=== PATIENT | male | born 1960 | race Caucasian/White ===

== ENCOUNTER 2022-12-05 07:27 | Outpatient (REF) | payer OTHER, SELFPAY ==
[2022-12-05 11:18] LABS: MANUAL DIFF FLAG NO
[2022-12-05 11:26] LABS: Basophils Percent Auto 0.5 % (0-2); Eosinophils Absolute Auto 0.1 X10*3/uL (0.0-0.4); Eosinophils Percent Auto 1.5 % (0-4); Hematocrit 50.9 % (42.0-52.0); Hemoglobin 17.1 g/dl (14.0-18.0); Imm Gran Abs Auto 0.02 X10*3/uL (0.00-0.03); Imm Gran Pct Auto 0.3 % (0.0-0.4); Lymphocytes Absolute Auto 2.6 X10*3/uL (1.2-4.9); Lymphocytes Percent Auto 38.3 % (20-40); Mean Corpuscular HGB Conc 33.6 g/dl (31.0-36.0); Mean Corpuscular Hemoglobin 30.2 pg (27.0-33.0); Mean Corpuscular Volume 89.8 fL (80.0-98.0); Mean Platelet Volume 10.1 fL (9.4-12.4); Monocytes Absolute Auto 0.7 X10*3/uL (0.1-1.2); Monocytes Percent Auto 9.9 % (2-11); Neutrophils Absolute Auto 3.3 x10*3/uL (2.0-8.3); Neutrophils Percent Auto 49.5 % (45-73); Platelet Count 171 X10*3/uL (160-400); Red Blood Count 5.67 X10*6/uL (4.60-5.80); Red Cell Distribution Width 12.4 % (11.0-16.0); White Blood Count 6.7 X10*3/uL (4.8-10.8)
[2022-12-05 11:53] LABS: Alanine Aminotransferase 23 U/L (0-40); Albumin Level 4.4 g/dL (3.5-5.0); Alkaline Phosphatase 80 U/L (39-117); Anion Gap 13 (12-20); Aspartate Amino Transferase 19 U/L (5-37); Bilirubin Total 0.9 mg/dL (0.0-1.0); Blood Urea Nitrogen 19 mg/dL (9-16); Calcium 9.3 mg/dL (8.4-10.2); Carbon Dioxide 21 mmol/L (22-29); Chloride 107 mmol/L (96-108); Cholesterol 233 mg/dL; Estimated Glomerular Filt Rate > 60; Glucose Fasting 98 mg/dL (60-99); HDL Cholesterol 47 mg/dL; LDL Cholesterol Calculated 156 mg/dl; Potassium 4.4 mmol/L (3.3-5.1); Sodium 137 mmol/L (135-145); Total Protein 6.5 g/dL (6.5-8.0); Triglycerides 154 mg/dL
[2022-12-05 11:56] LABS: Appearance Urine Turbid; Color Urine Yellow; Glucose Urine UA Negative (Negative); Leukocyte Esterase Urine Negative (Negative); Nitrite Urine Negative (Negative); PH 5.5 (5.0-9.0); Specific Gravity - Urine 1.025 (1.005-1.025); Urine Blood Negative (Negative); Urine Ketones Negative (Negative); Urine Protein Negative (Neg-Trace)
[2022-12-05 12:01] LABS: Prostate Specific Antigen Scr 1.54 ng/mL (<0.05-4.0); TSH reflex Free T4 0.95 uIU/mL (0.32-4.0)
[2022-12-05 12:23] LABS: Creatinine Urine 183.75 mg/dL; Microalbum/Creatinine Ratio Ur 3.8 ug/mg cr
[2022-12-12 11:09] LABS: Testosterone, Free 46.8 pg/mL (35.0-155.0); Testosterone, Total 414 ng/dL (250-1100)
== END 2022-12-05 07:28 | disposition home or self-care (01) ==
LOC: HO.WFDLDS 07:27
PROVIDERS: Visit Provider Family Medicine
DX: Z00.00 Encounter for general adult medical examination without abnormal findings (principal); R79.89 Other specified abnormal findings of blood chemistry; I10 Essential (primary) hypertension; Z12.5 Encounter for screening for malignant neoplasm of prostate
CPT/HCPCS: 36415; 80053; 80061; 81003; 82043; 84153; 84402; 84403; 84443; 85025

== ENCOUNTER → 2023-01-01 15:00 | Outpatient (BNVA) | payer OTHER, SELFPAY | PROVIDERS: PCP Family Medicine; Visit Provider Urology | DX: N40.0 Benign prostatic hyperplasia without lower urinary tract symptoms (principal); R35.0 Frequency of micturition | CPT/HCPCS: 51798 ==

== ENCOUNTER 2023-02-19 09:47 | Outpatient (REF) | payer OTHER, SELFPAY ==
--- NOTE | ~2023-02-19 | US_ITS ---
EXAMINATION: US RETROPERITONEAL COMPLETE (RENAL) CLINICAL INFORMATION: Benign prostatic hyperplasia without lower urinary tract symptoms. COMPARISON: None available. TECHNIQUE: Real-time imaging of the kidneys and bladder. FINDINGS: RIGHT KIDNEY: 13.3 x 6.4 x 6.9 cm (SAG x AP x TRV). The kidney is normal in size, contour, and echogenicity. Renal cortical thickness is normal. No hydronephrosis. There are multiple anechoic cysts. 1. Lower pole cyst with septation measures 4.4 x 4.8 x 5.5 cm. 2. Midpole simple cyst measures 2.3 x 2.3 x 2.6 cm. 3. A simple upper pole cyst measures 2.5 x 2.0 x 2.5 cm. There are echogenic stones measuring 0.3 x 0.02 x 0.4 cm upper pole and 0.4 x 0.2 x 0.4 cm in midpole without caliectasis. LEFT KIDNEY: 11.5 x 6.2 x 6.3 cm (SAG x AP x TRV). The kidney is normal in size, contour, and echogenicity. Renal cortical thickness is normal. No hydronephrosis. There is an anechoic simple cyst in the upper pole measuring 3.6 x 3.7 x 3.7 cm. A nonobstructive echogenic stone is seen upper pole measuring 0.6 x 0.3 x 0.5 cm. There is mild pelvic fullness. BLADDER: Partially distended. Bilateral ureteral jets are demonstrated. Prevoid bladder volume is 105 mL. Postvoid bladder volume is 23.6 mL. Prostate volume is 66.3 mL. The prostate gland is heterogeneous with cysts. US/US retroperitoneal comp IMPRESSION: 1. Bilateral renal cysts. There is a complex cyst lower pole right kidney. 2. Bilateral nonobstructive echogenic renal calculi. There is no caliectasis or hydronephrosis. 3. Small postvoid residual bladder volume. 4. Moderate prostate enlargement.
== END 2023-02-19 09:48 | disposition home or self-care (01) ==
LOC: HO.US 09:47
PROVIDERS: PCP Family Medicine; Visit Provider Urology
DX: N40.0 Benign prostatic hyperplasia without lower urinary tract symptoms (principal); R35.0 Frequency of micturition
CPT/HCPCS: 76770

== ENCOUNTER → 2023-03-05 08:52 | Outpatient (BNVA) | payer OTHER, SELFPAY | PROVIDERS: PCP Family Medicine; Visit Provider Urology | DX: N28.1 Cyst of kidney, acquired (principal); R35.0 Frequency of micturition; N40.1 Benign prostatic hyperplasia with lower urinary tract symptoms | CPT/HCPCS: 51798 ==

== ENCOUNTER 2023-05-28 07:21 | Outpatient (REF) | payer OTHER, SELFPAY ==
--- NOTE | ~2023-05-28 | CT_ITS ---
EXAMINATION: CT ABDOMEN WITHOUT AND WITH CONTRAST CLINICAL INFORMATION: Renal mass protocol. Complex right kidney cyst. COMPARISON: Renal ultrasound 02/19/2023. TECHNIQUE: Contiguous axial thin section helical images of the abdomen were performed before and after the administration of oral contrast and 100 mL of Omnipaque 350 intravenous contrast. The data set was reformatted in the coronal and sagittal planes and reviewed on an independent workstation. This CT examination was performed using dose optimization techniques as appropriate, variously including the following: *Automated exposure control *Adjustment of mA and/or kV according to patient size (this includes techniques or standardized protocols for targeted exams where dose is matched to indication/reason for exam; i.e. extremities or head) *Use of iterative reconstruction technique DLP: 529 mGy-cm FINDINGS: LUNG BASES: Lung bases are clear. Large hiatal hernia. LIVER, GALLBLADDER, AND BILIARY TREE: The liver is homogeneous in attenuation. Small cysts in segment 2 and segment 8. No follow-up imaging is recommended. No biliary ductal dilatation. PANCREAS: No discrete pancreatic mass. No ductal dilatation. SPLEEN: Normal. ADRENAL GLANDS: No adrenal mass. KIDNEYS: No radiopaque nephrolithiasis. Symmetric nephrograms. Multiple cysts: 1. Right upper kidney, 2.4 cm, simple fluid density. Bosniak 1. No follow-up imaging recommended. 2. Right mid kidney, 2.3 cm, simple fluid density. Bosniak 1. No follow-up imaging recommended. 3. Right lower kidney, 1.1 cm, simple fluid density. Bosniak 1. No follow-up imaging recommended. 4. Right lower kidney 5.2 cm, simple fluid density. No visible septa. No mural nodularity or soft tissue component. Bosniak 2. No follow-up imaging recommended. 5. left upper kidney, 3.6 cm, simple fluid density. Bosniak 1. No follow-up imaging recommended. 6. Additional tiny cortical hypodensities in both kidneys are too small to characterize. Bosniak 2. No follow-up imaging recommended. BOWEL: Large hiatal hernia. Visible small and large bowel are normal in caliber. The appendix is normal. LYMPH NODES: No adenopathy. VASCULAR: Mild atherosclerosis. No aneurysm. BONES: No suspicious osseous lesions. Moderate degenerative changes in the spine. CT/CT abdomen wo/w IV con IMPRESSION: 5.2 cm Bosniak 2 cyst in the lower right kidney corresponds to the abnormality on recent ultrasound. No follow-up imaging is recommended. Large hiatal hernia. Fleischner guidelines were followed.
[2023-05-28 08:29] LABS: Blood Urea Nitrogen 19 mg/dL (9-16); Estimated Glomerular Filt Rate > 60
[2023-05-28] MEDS: iohexoL 350 MG/ML 100 ML INFUS..BTL 85 ML IV (09:07)
== END 2023-05-28 07:22 | disposition home or self-care (01) ==
LOC: HO.CT 07:21
PROVIDERS: PCP Family Medicine; Visit Provider Urology
DX: N28.1 Cyst of kidney, acquired (principal)
CPT/HCPCS: 36415; 74170; 82565; 84520; Q9967

== ENCOUNTER 2023-06-12 13:49 | Outpatient (AMB) | payer OTHER, SELFPAY ==
--- NOTE | 2023-06-12 13:58 | A.OFFVIS_ITS ---
Intake Intake Visit Reasons: 4m follow up Intake Note: Patient is present for Follow Up Urology Med: Alfuzosin, Antibiotic Allergy:None Blood Thinner: None [facility] P[facility]ML Allergies No Known Allergies Allergy (Verified 06/12/23 14:00) HPI HPI Comments History of Present Illness Details Venkatesh is a pleasant male. He is a patient of Dr. Aquino. He seen for the following urologic conditions - lower urinary tract symptoms - Peyronie's disease Peyronie's disease Progressive Normal testosterone 414 Mild deviation with thickening Discussed options including plication versus trial of antioxidant medications Would like to trial antioxidant Lower urinary tract symptoms AUA symptom score 20. PSA?12/05/2022?1.54. He was started on alfuzosin 10 mg. 03/05/23-- The patent is taking alfuzosin 10 mg with benefits. States having nocturia episodes 2 times at night, improved from 5 times. Evaluation today-- Blood: negative, leukocytes: negative. Bladder scan PVR: 62 mL. Renal US results reviewed?02/19/23?bilateral renal cyst. Complex in the lower pole of the right kidney 4.4 x 5.5 cm. Bilateral renal calculi noted. Estimated prostate volume noted was 66.3 mL. [facility] Social History Housing: House Patient Tobacco Use Status: Never used Tobacco e-Cigarette/Vaping Use: Never Used service: Yes Current occupational status: employed Cognitive needs: No Hearing needs: No Vision needs: No Review of Systems Const Denies chills and Denies fever(s) Card Reports no additional complaints and Denies syncope Resp Denies cough GI Denies abdominal pain and Denies heartburn Reports as per HPI and Denies change in libido Neuro Denies syncope Psych Denies change in libido Endo Denies change in libido Physical Exam Const General: cooperative, healthy appearing, comfortable and no acute distress Orientation/consciousness: patient oriented x3 HEENT Face and sinus: Yes normal facial exam Mouth: moist mucous membranes Neck Neck: Yes normal visual inspection, Yes full ROM and Yes trachea midline Chest Chest palpation & inspection: normal inspection of the chest Resp Effort & Inspection: normal respiratory effort, able to speak in complete sentences and no respiratory distress GI Inspection: Yes normal to inspection Back/Spine/Pelvis Cervical Spine: normal cervical lordosis Thoracic/Lumbar Spine: thoracic and lumbar spine normal to inspection Skin General skin exam: no rashes or lesions noted Neuro General: patient oriented x3, gait normal, tone normal and moves all extremities Extrem General: Yes normal to inspection and Yes capillary refill normal Office Procedures Post Void Residual Post Residual Void Post Void Residual (PVR): 0 02326-Yzrm Void Residual by ultrasound Assessment & Plan Assessment & Plan (1) Peyronie's disease: Code(s): N48.6 - Induration penis plastica Plan Trial medications with vacuum pump therapy Orders: Orders AMB Post Void Residual by ultrasound 06/12/23 N40.0 - Benign prostatic hyperplasia without lower urinary tract symptoms Medications: New vitamin E (dl, acetate) 450 mg PO DAILY 90 caps 1RF 90 days N48.6 - Induration penis plastica tadalafil Take daily 10 mg PO DAILY 90 tabs 1RF Peyrnies 90 days N48.6 - Induration penis plastica Patient Instructions: Imaging studies, laboratory and physical exam results were discussed and reviewed in detail. No major barriers to patient understanding were identified. An opportunity to ask questions regarding the treatment plan was provided. All questions were answered. The patient expressed understanding and agreement with the above treatment plan. The patient is aware they should contact our office by phone for worsening of their current condition or the appearance of new urologic symptoms. Compliance is encouraged with any medications and followup testing that is ordered. It is a privilege to participate in the urologic care of your patient. If you have any questions or concerns regarding treatment for the above conditions, or other urologic issues, please do not hesitate to contact me. The office telephone contact is [phone]. This note is constructed using voice recognition software. While every effort has been made to ensure accuracy business librarian errors may have been included. Yours sincerely, Dr Raoul Dixon MD, [facility] - Urology Providers of Expert, Compassionate Care for the Genitourinary System Coding Level of Care Code Est Pt Level 4 (18223) Diagnoses Peyronie's disease N48.6 CPT Codes Post Residual Void - PVR CPT Code: 59950-Yaop Void Residual by ultrasound ([id number])
== END 2023-06-12 15:34 | disposition home or self-care (01) ==
PROVIDERS: PCP Family Medicine; Visit Provider Urology
DX: N48.6 Induration penis plastica (principal)
CPT/HCPCS: 99214

== ENCOUNTER → 2023-06-12 13:49 | Outpatient (BNVA) | payer OTHER, SELFPAY | PROVIDERS: Visit Provider Urology | DX: N40.0 Benign prostatic hyperplasia without lower urinary tract symptoms (principal); N48.6 Induration penis plastica; Z79.899 Other long term (current) drug therapy | CPT/HCPCS: 51798 ==

== ENCOUNTER 2023-07-25 11:33 | Outpatient (AMB) | payer OTHER, SELFPAY ==
[2023-07-25 11:52] VITALS: BP 122/72; PULSE 57; O2SAT 98; BMI 25.6
--- NOTE | 2023-07-25 11:52 | MHC.PC.OV ---
Vital Signs 07/25/23 11:52 Height 6 ft 4 in Weight 210 lb BMI 25.6 BP 122/72 Blood Pressure Location Lt brachial Position Sitting Pulse 57 Pulse Source Pulse Oximeter Pulse Oximetry (%) 98 Oxygen Delivery Method Room Air Intake Visit Reasons: Discuss Anesthesiology Resident referral Intake Note: Patient is here to discuss gastro referral today. Allergies No Known Allergies Allergy (Verified 07/25/23 11:54) Tobacco use date assessed: 07/25/23 HPI Discuss Anesthesiology Resident referral HPI Details Pt presents to discuss GI referral. Pt reports difficulty swallowing. Pt also reports GERD. PFSH Social History Housing: House Patient Tobacco Use Status: Never used Tobacco e-Cigarette/Vaping Use: Never Used service: Yes Current occupational status: employed Current occupation: [employer] Cognitive needs: No Hearing needs: No Vision needs: No Questionnaire Thrive Questionnaire Date Thrive assessed: 12/04/22 CARIE-7 AMB Questionnaire CARIE-7 Date CARIE - 7 assessed: 12/04/22 Source: Developed by Drs. Malachi Macdonald, Elena Vang, Dav Huston and colleagues, with an educational samuel from [employer]. Review of Systems Const Denies chills, Denies fatigue, Denies fever(s), Denies headache(s) and Denies weakness ENT Denies dizziness and Denies headache(s) Card Denies dyspnea Resp Denies cough, Denies dyspnea, Denies wheezing and Denies other (shortness of breath) Musc Denies numbness and Denies tingling Neuro Denies dizziness, Denies headache(s), Denies numbness, Denies tingling and Denies weakness Psych Denies anxiety and Denies depression Endo Denies fatigue Aller/Immun Denies wheezing Physical exam (Primary Care) Vital Signs: Last Vital Signs Pulse 57 07/25/23 11:52 BP 122/72 07/25/23 11:52 Pulse Ox 98 07/25/23 11:52 Oxygen Delivery Method Room Air 07/25/23 11:52 BMI result Body Mass Index 25.6 Tobacco/Smoking Status: Tobacco use Status Tobacco use date assessed 07/25/23 07/25/23 11:55 Patient Tobacco Use Status Never used Tobacco 07/25/23 11:55 e-Cigarette/Vaping Use Never Used 07/25/23 11:55 Thrive Assessment: Date of Thrive Assessment Date Thrive assessed 12/04/22 07/25/23 11:55 Const General: well developed; No acute distress Nutritional Appearance: well nourished Orientation/consciousness: patient oriented x3 HENMT Head: Yes normocephalic and Yes atraumatic Eyes General: appearance normal, both eyes and all related structures Pupils: Equal, round and reactive pupils present EOM: EOMs intact bilaterally Resp Effort & Inspection: normal respiratory effort Neuro General: patient oriented x3 and gait normal Cranial nerves: Yes Equal, round and reactive pupils present Psych Affect: normal affect Assessment and Plan Assessment & Plan (1) Difficulty swallowing: Code(s): R13.10 - Dysphagia, unspecified Plan: Difficulty?swallowing?which?seems?related?to?GERD Start?omeprazole Will?check?modified?barium?swallow Will?also?refer?to?Gastroenterology (2) GERD (gastroesophageal reflux disease): Code(s): K21.9 - Gastro-esophageal reflux disease without esophagitis Plan: As?above, start?omeprazole Refer?to?GI Orders: Orders Complete Blood Count Auto Diff Today Z00.00 - Encounter for general adult medical examination without abnormal findings Lipid Panel Today Z00.00 - Encounter for general adult medical examination without abnormal findings FL barium swallow modified Today R13.10 - Dysphagia, unspecified Comprehensive Alexander. Panel Fast Today Z00.00 - Encounter for general adult medical examination without abnormal findings Microalbumin, Random (w Creat) Today I10 - Essential (primary) hypertension TSH reflex Free T4 Today Z00.00 - Encounter for general adult medical examination without abnormal findings UA and rflx microscopic Today Z00.00 - Encounter for general adult medical examination without abnormal findings Referrals Gastroenterology Referral K21.9 - Gastro-esophageal reflux disease without esophagitis, R13.10 - Dysphagia, unspecified Medications: New omeprazole 40 mg PO DAILY 30 caps 2RF 30 days Coding Level of Care Code Est Pt Level 3 (53059) Diagnoses Difficulty swallowing R13.10 GERD (gastroesophageal reflux disease) K21.9
== END 2023-07-25 12:31 | disposition home or self-care (01) ==
PROVIDERS: PCP Family Medicine; Visit Provider Family Medicine
DX: R13.10 Dysphagia, unspecified (principal); K21.9 Gastro-esophageal reflux disease without esophagitis
CPT/HCPCS: 99213

== ENCOUNTER 2023-08-17 13:38 | Outpatient (AMB) | payer OTHER, SELFPAY ==
--- NOTE | 2023-08-17 13:39 | MHC.OFFVIS ---
Intake Vital Signs 08/17/23 13:52 Height 6 ft 4 in Weight 235 lb 14.314 oz BMI 28.7 BP 149/100 H Blood Pressure Location Lt brachial Position Sitting Pulse 86 Intake Visit Reasons: Dysphagia Intake Note: Venkatesh presents in the office as a new patient for dysphagia. CC: HE is having issue swallowing and he has had an EGD w/ DIL in the past. IT was 12 years ago. Omeprazole has helped a little but he still has issues swallowing. He feels like he has a sudden intake of air that goes into his stomach. Allergies No Known Allergies Allergy (Verified 08/17/23 13:54) HPI HPI Comments History of Present Illness Details This is a 62y.o M with PMH of pAFib, BPH, who is here for difficulty swallowing. Has been having difficulty swallowing for almost 4-5 months primarily to solids catherine dry foods. 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 No odynophagia. But does have regurgitation catherine when supine. No unintentional weight loss. Last colo was 3 years ago in [place] - was given 7 year interval. Of note - pt reports being started on Eliquis recently in preparation for AFib ablation which is currently [facility] for September. 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 Cognitive needs: No Hearing needs: No Vision needs: No Review of Systems Const All systems reviewed & are unremarkable except as noted in HPI and below Physical Exam Vital Signs: Last Vital Signs Pulse 86 08/17/23 13:52 BP 149/100 H 08/17/23 13:52 BMI result Body Mass Index 28.7 Gen appear: NAD HEENT: nonicteric, no cervical lymphadenopathy Chest: CTA CVS: Regular S1/S2 Abd: soft, nontender, nondistended, bowel sounds + Ext: no peripheral edema Neuro: A/Ox3, noted to move all extremities spontaneously Psych: interacting appropriately Assessment & Plan Assessment & Plan (1) Difficulty swallowing: Code(s): R13.10 - Dysphagia, unspecified (2) Paroxysmal atrial fibrillation: Code(s): I48.0 - Paroxysmal atrial fibrillation Plan Ddx include Schatzki's ring recurrence, web/stricture, dysmotility, esophagitis. Plan: - EGD +/- dil. Pt reminded that this will need to be done off eliquis x 2 days and therefore will need to contact his Automatic Nailing Machine Operator for timing of Afib ablation as will likely not be able to interrupt the anticoagulation POST ablation x 2-3 months. - In the meantime can cont PPI (although reports did not help much). Cut up food in small pieces and chew thoroughly. Follow up after egd Coding Level of Care Code New Pt Level 4 (01155) Diagnoses Difficulty swallowing R13.10 Paroxysmal atrial fibrillation I48.0
[2023-08-17 13:52] VITALS: BP 149/100; PULSE 86; BMI 28.7
== END 2023-08-17 15:01 | disposition home or self-care (01) ==
PROVIDERS: PCP Family Medicine; Visit Provider Internal Medicine
DX: R13.10 Dysphagia, unspecified (principal); I48.0 Paroxysmal atrial fibrillation
CPT/HCPCS: 99204

== ENCOUNTER → 2023-08-17 13:38 | Outpatient (BNVA) | payer OTHER, SELFPAY | PROVIDERS: PCP Family Medicine; Visit Provider Internal Medicine ==

== ENCOUNTER 2023-09-10 08:42 | Outpatient (REF) | payer OTHER, SELFPAY ==
[2023-09-10 11:21] LABS: MANUAL DIFF FLAG NO
[2023-09-10 11:40] LABS: Basophils Percent Auto 0.4 % (0-2); Eosinophils Absolute Auto 0.1 X10*3/uL (0.0-0.4); Eosinophils Percent Auto 1.2 % (0-4); Hematocrit 48.1 % (42.0-52.0); Hemoglobin 15.8 g/dl (14.0-18.0); Imm Gran Abs Auto 0.04 X10*3/uL (0.00-0.03); Imm Gran Pct Auto 0.4 % (0.0-0.4); Lymphocytes Absolute Auto 1.8 X10*3/uL (1.2-4.9); Mean Corpuscular HGB Conc 32.8 g/dl (31.0-36.0); Mean Corpuscular Hemoglobin 30.1 pg (27.0-33.0); Mean Corpuscular Volume 91.6 fL (80.0-98.0); Mean Platelet Volume 10.1 fL (9.4-12.4); Monocytes Percent Auto 9.5 % (2-11); Neutrophils Absolute Auto 7.6 x10*3/uL (2.0-8.3); Neutrophils Percent Auto 71.5 % (45-73); Platelet Count 158 X10*3/uL (160-400); Red Blood Count 5.25 X10*6/uL (4.60-5.80); Red Cell Distribution Width 12.4 % (11.0-16.0); White Blood Count 10.7 X10*3/uL (4.8-10.8)
[2023-09-10 11:41] LABS: INTERNATIONAL NORM RATIO 1.1 (0.9-1.1); Prothrombin Time 13.3 SEC (11.1-13.3)
[2023-09-10 11:46] LABS: Anion Gap 11 (12-20); Blood Urea Nitrogen 16 mg/dL (9-16); Calcium 9.3 mg/dL (8.4-10.2); Carbon Dioxide 23 mmol/L (22-29); Chloride 110 mmol/L (96-108); Estimated Glomerular Filt Rate > 60; Glucose Random 108 mg/dL (60-115); Potassium 3.8 mmol/L (3.3-5.1); Sodium 140 mmol/L (135-145)
[2023-09-10 11:48] LABS: Appearance Urine Clear; Color Urine Dark Yellow; Glucose Urine UA Negative (Negative); Leukocyte Esterase Urine Negative (Negative); Nitrite Urine Negative (Negative); PH 5.5 (5.0-9.0); Specific Gravity - Urine 1.025 (1.005-1.025); Urine Blood Negative (Negative); Urine Ketones Negative (Negative); Urine Protein Negative (Neg-Trace)
[2023-09-10 12:01] LABS: Alanine Aminotransferase 19 U/L (0-40); Albumin Level 4.1 g/dL (3.5-5.0); Alkaline Phosphatase 85 U/L (39-117); Anion Gap 10 (12-20); Aspartate Amino Transferase 18 U/L (5-37); Bilirubin Total 0.7 mg/dL (0.0-1.0); Blood Urea Nitrogen 15 mg/dL (9-16); Calcium 9.1 mg/dL (8.4-10.2); Carbon Dioxide 23 mmol/L (22-29); Chloride 111 mmol/L (96-108); Cholesterol 152 mg/dL (<200); Estimated Glomerular Filt Rate > 60; Glucose Fasting 108 mg/dL (60-99); HDL Cholesterol 42 mg/dL (>40); LDL Cholesterol Calculated 89 mg/dL (<100); Potassium 3.8 mmol/L (3.3-5.1); Sodium 140 mmol/L (135-145); Total Protein 6.6 g/dL (6.5-8.0); Triglycerides 108 mg/dL (<150)
[2023-09-10 12:02] LABS: TSH reflex Free T4 0.98 uIU/mL (0.32-4.0)
[2023-09-10 12:17] LABS: Creatinine Urine 224.67 mg/dL
== END 2023-09-10 08:43 | disposition home or self-care (01) ==
LOC: HO.WFDLDS 08:42
PROVIDERS: Internal Medicine Cardiovascular Disease; Visit Provider Family Medicine
DX: Z00.00 Encounter for general adult medical examination without abnormal findings (principal); I10 Essential (primary) hypertension; I48.91 Unspecified atrial fibrillation
CPT/HCPCS: 36415; 80048; 80053; 80061; 81003; 82043; 82570; 84443; 85025; 85610

== ENCOUNTER 2023-09-12 14:02 | Outpatient (AMB) | payer OTHER, SELFPAY ==
--- NOTE | 2023-09-12 14:25 | A.OFFVIS_ITS ---
Intake Intake Visit Reasons: Peyronie's disease- follow up Intake Note: Patient is present for Follow Up Urology Med: Alfuzosin, Antibiotic Allergy:None Blood Thinner: Eliquis [facility] P[facility]ML Core Blower Required: No Accompanied by: Self / Same As Patient Allergies No Known Allergies Allergy (Verified 09/12/23 14:25) Medication List - Last Reconciled 09/12/23 by Raoul Dixon MD alfuzosin ER 10 mg PO DAILY 90 days apixaban (Eliquis) 5 mg PO BID flecainide 150 mg PO BID omeprazole 40 mg PO DAILY 30 days pentoxifylline ER 400 mg PO BID 90 days tadalafil 10 mg PO DAILY 90 days vitamin E (dl, acetate) 450 mg PO DAILY 90 days HPI HPI Comments History of Present Illness Details Venkatesh is a pleasant male. He is a patient of Dr. Aquino. He seen for the following urologic conditions - lower urinary tract symptoms - Peyronie's disease Peyronie's follow-up Has been on conservative therapy Good response Curvature resolving Able to achieve effective erection and penetration without discomfort to either partner Six month follow-up tele Peyronie's disease Progressive Normal testosterone 414 Mild deviation with thickening Discussed options including plication versus trial of antioxidant medications Would like to trial antioxidant Lower urinary tract symptoms AUA symptom score 20. PSA?12/05/2022?1.54. He was started on alfuzosin 10 mg. 03/05/23-- The patent is taking alfuzosin 10 mg with benefits. States having nocturia episodes 2 times at night, improved from 5 times. Evaluation today-- Blood: negative, leukocytes: negative. Bladder scan PVR: 62 mL. Renal US results reviewed?02/19/23?bilateral renal cyst. Complex in the lower pole of the right kidney 4.4 x 5.5 cm. Bilateral renal calculi noted. Estimated prostate volume noted was 66.3 mL. 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 Cognitive needs: No Hearing needs: No Vision needs: No Review of Systems Const Denies chills and Denies fever(s) Card Reports no additional complaints and Denies syncope Resp Denies cough GI Denies abdominal pain and Denies heartburn Reports as per HPI and Denies change in libido Neuro Denies syncope Psych Denies change in libido Endo Denies change in libido Physical Exam Const General: cooperative, healthy appearing, comfortable and no acute distress Orientation/consciousness: patient oriented x3 HEENT Face and sinus: Yes normal facial exam Mouth: moist mucous membranes Neck Neck: Yes normal visual inspection, Yes full ROM and Yes trachea midline Chest Chest palpation & inspection: normal inspection of the chest Resp Effort & Inspection: normal respiratory effort, able to speak in complete sentences and no respiratory distress GI Inspection: Yes normal to inspection Back/Spine/Pelvis Cervical Spine: normal cervical lordosis Thoracic/Lumbar Spine: thoracic and lumbar spine normal to inspection Skin General skin exam: no rashes or lesions noted Neuro General: patient oriented x3, gait normal, tone normal and moves all extremities Extrem General: Yes normal to inspection and Yes capillary refill normal Office Procedures Post Void Residual Post Residual Void Post Void Residual (PVR): 0 00057-Crem Void Residual by ultrasound Assessment & Plan Assessment & Plan (1) Peyronie's disease: Code(s): N48.6 - Induration penis plastica (2) BPH loc w urin obs/LUTS: Code(s): N40.1 - Benign prostatic hyperplasia with lower urinary tract symptoms Plan Six month follow-up Orders: Orders AMB Post Void Residual by ultrasound Today N39.8 - Other specified disorders of urinary system Medications: New pentoxifylline ER administer with meals 400 mg PO BID 180 tabs 1RF 90 days N48.6 - Induration penis plastica Refilled tadalafil Take daily 10 mg PO DAILY 90 tabs 1RF Peyrnies 90 days N48.6 - Induration penis plastica Patient Instructions: Imaging studies, laboratory and physical exam results were discussed and reviewed in detail. No major barriers to patient understanding were identified. An opportunity to ask questions regarding the treatment plan was provided. All questions were answered. The patient expressed understanding and agreement with the above treatment plan. The patient is aware they should contact our office by phone for worsening of their current condition or the appearance of new urologic symptoms. Compliance is encouraged with any medications and followup testing that is ordered. It is a privilege to participate in the urologic care of your patient. If you have any questions or concerns regarding treatment for the above conditions, or other urologic issues, please do not hesitate to contact me. The office telephone contact is [phone]. This note is constructed using voice recognition software. While every effort has been made to ensure accuracy kick plate installer errors may have been included. Yours sincerely, Dr Raoul Dixon MD, [facility] - Urology Providers of Expert, Compassionate Care for the Genitourinary System Coding Level of Care Code Est Pt Level 3 (23201) Diagnoses Peyronie's disease N48.6 BPH loc w urin obs/LUTS N40.1 CPT Codes Post Residual Void - PVR CPT Code: 56563-Jnyy Void Residual by ultrasound ([id number])
== END 2023-09-12 14:44 | disposition home or self-care (01) ==
PROVIDERS: PCP Family Medicine; Visit Provider Urology
DX: N48.6 Induration penis plastica (principal); N40.1 Benign prostatic hyperplasia with lower urinary tract symptoms
CPT/HCPCS: 99213

== ENCOUNTER → 2023-09-12 14:02 | Outpatient (BNVA) | payer OTHER, SELFPAY | PROVIDERS: PCP Family Medicine; Visit Provider Urology | DX: N48.6 Induration penis plastica (principal); N40.1 Benign prostatic hyperplasia with lower urinary tract symptoms; N13.8 Other obstructive and reflux uropathy | CPT/HCPCS: 51798 ==

== ENCOUNTER 2023-11-02 11:51 | Outpatient (AMB) | payer OTHER, SELFPAY ==
[2023-11-02 11:58] VITALS: BP 128/76; PULSE 62; RESP 13; TEMP 36.3; O2SAT 97; BMI 29.0
--- NOTE | 2023-11-02 11:58 | A.OFFPC_ITS ---
Vital Signs 11/02/23 11:58 Height 6 ft 4 in Weight 238 lb BMI 29.0 BP 128/76 Blood Pressure Location Rt brachial Position Sitting Respiration 13 Pulse 62 Pulse Source Pulse Oximeter Temp 97.4 F Temp Source Temporal Artery Scan Pulse Oximetry (%) 97 Oxygen Delivery Method Room Air Intake Visit Reasons: CPE with f/u labs and health maint. Photo Mask Inspector Required: No Accompanied by: Self / Same As Patient Allergies No Known Allergies Allergy (Verified 11/02/23 12:04) Tobacco use date assessed: 11/02/23 Dental Screening Dental Screen Date: 11/02/23 Did you have a dental visit in the last 12 months?: Yes Did you have a dental problem in the last 6 months where you did not have access to dental care?: No Was dental information given to patient?: Patient has dentist HPI CPE with f/u labs and health maint. HPI Details 62 y/o male presents for a CPE with f/u labs and health maintenance. Labs were drawn 09/10/23. Reviewed labs with pt. Elevated fasting glucose of 108. Triglycerides 108. TC 152. LDL 89. HDL 42. 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 Malachi Macdonald, Elena Vang, Dav Huston and colleagues, with an educational samuel from [facility]. Review of Systems Const Denies chills, Denies fatigue, Denies fever(s), Denies headache(s) and Denies weakness Eyes Denies change in vision ENT Denies dizziness, Denies headache(s), Denies hearing loss, Denies nasal congestion, Denies sinus pain, Denies sinus pressure and Denies sore throat Card Denies chest pain, Denies lightheadedness, Denies dyspnea and Denies other (palpitations) Resp Denies cough, Denies dyspnea and Denies wheezing GI Denies abdominal pain, Denies melena, Denies hematochezia, Denies change in bowel habits, Denies dyspepsia and Denies nausea Denies hematuria and Denies dysuria Musc Denies abnormal gait, Denies myalgias, Denies arthralgias, Denies numbness and Denies tingling Skin/Breast Denies rash, Denies unusual bruising and Denies wounds Neuro Denies abnormal gait, Denies dizziness, Denies headache(s), Denies memory loss, Denies numbness, Denies Sensory deficit (Neuro), Denies tingling and Denies weakness Psych Denies anxiety, Denies depression and Denies memory loss Endo Denies cold intolerance, Denies fatigue, Denies heat intolerance, Denies polydipsia and Denies polyuria Meng/Lymph Denies easy bleeding and Denies easy bruising Aller/Immun Denies wheezing Physical exam (Primary Care) Vital Signs: Last Vital Signs Temp 97.4 F 11/02/23 11:58 Pulse 62 11/02/23 11:58 Resp 13 11/02/23 11:58 BP 128/76 11/02/23 11:58 Pulse Ox 97 11/02/23 11:58 Oxygen Delivery Method Room Air 11/02/23 11:58 BMI result Body Mass Index 29.0 Tobacco/Smoking Status: Tobacco use Status Tobacco use date assessed 11/02/23 11/02/23 12:09 Patient Tobacco Use Status Never used Tobacco 11/02/23 12:06 e-Cigarette/Vaping Use Never Used 11/02/23 12:06 Thrive Assessment: Date of Thrive Assessment Date Thrive assessed 12/04/22 11/02/23 12:06 Const General: no acute distress, well developed, alert and awake Nutritional Appearance: well nourished Orientation/consciousness: patient oriented x3 HENMT Head: Yes normocephalic and Yes atraumatic Ears: hearing grossly normal bilaterally and TM's normal bilaterally General nose exam: Normal external nose present and Normal nares present Mouth: Normal oral and palatal mucosa present and moist mucous membranes Teeth and gingiva: dentition normal Throat: Yes posterior oropharynx normal Eyes General: appearance normal, both eyes and all related structures Pupils: Equal, round and reactive pupils present and Pupil accommodation reflex normal EOM: EOMs intact bilaterally Neck Neck: Yes normal visual inspection, Yes no lymphadenopathy and Yes trachea midline Thyroid: Thyroid normal Carotids: no bruits Lymphatic: no lymphadenopathy noted Chest Chest palpation & inspection: normal inspection of the chest Resp Effort & Inspection: normal respiratory effort Auscultation: clear to auscultation bilaterally Cardio Rate: regular rate Rhythm: regular rhythm Heart sounds: S1 normal heart sound present, S2 normal heart sound present, no gallops, no murmurs and no rubs Bruits: no abdominal aortic bruits and no carotid bruits GI Palpation (GI): No Abdominal aortic bruit present, Soft to palpation, nontender, No hepatosplenomegaly present and No Rebound tenderness present Auscultation: normal bowel sounds General: Yes no CVA tenderness Back/Spine/Pelvis Back: no CVA tenderness Cervical Spine: cervical ROM normal and No Cervical spine tenderness Thoracic/Lumbar Spine: thoraco-lumbar ROM normal, No pain with thoraco-lumbar ROM, No thoracic spinal tenderness and No lumbar spinal tenderness Skin Lesions: no lesions Rashes: no rashes Trauma: no lacerations or abrasions Wounds: no wounds Nails: normal Neuro General: patient oriented x3 Cranial nerves: Yes Equal, round and reactive pupils present Cognition (Neuro): normal cognition Gait exam (Neuro): Normal gait present Motor exam (neuro): 5/5 motor strength present throughout Sensory Exam: No Sensory deficit (Neuro) Deep tendon reflexes (DTR's): Right patellar reflex intensity grade: 2+ and Left patellar reflex intensity grade: 2+ Extrem General: Yes normal to inspection and No edema Psych Appearance: grossly normal Affect: normal affect Attitude: cooperative Thought process: Normal thought process present Assessment and Plan Assessment & Plan (1) Adult general medical exam: Code(s): Z00.00 - Encounter for general adult medical examination without abnormal findings Plan: 62-year-old?male?presents?for?complete?physical?exam Encouraged?healthy?diet?with?active?lifestyle?and?plenty?of?exercise (2) Elevated fasting glucose: Code(s): R73.01 - Impaired fasting glucose Plan: Mildly?elevated?fasting?blood?sugar?but?his?prior?check?in?November?was?normal. He?notes?that?he?may?not?have?had?a?complete?fast Recheck?fasting?blood?sugar (3) Paroxysmal atrial fibrillation: Code(s): I48.0 - Paroxysmal atrial fibrillation (4) Screening for colon cancer: Code(s): Z12.11 - Encounter for screening for malignant neoplasm of colon Plan: He?is?followed?by?[facility]?gastroenterology. (5) Screening for prostate cancer: Code(s): Z12.5 - Encounter for screening for malignant neoplasm of prostate Plan: Strong?family?history?of?prostate?cancer. Last?PSA?in?November?2022?was?within?normal?limits. Will?repeat?this?and?follow Orders: Orders Basic Metabolic Panel Fasting Today R73.01 - Impaired fasting glucose Prostate Specific Antigen Scr Today Z12.5 - Encounter for screening for malignant neoplasm of prostate Coding Level of Care Code Est Pt Prev Care 40-64y(67921) Diagnoses Adult general medical exam Z00.00 Elevated fasting glucose R73.01 Paroxysmal atrial fibrillation I48.0 Screening for colon cancer Z12.11 Screening for prostate cancer Z12.5
== END 2023-11-02 12:48 | disposition home or self-care (01) ==
PROVIDERS: PCP Family Medicine; Visit Provider Family Medicine
DX: Z00.00 Encounter for general adult medical examination without abnormal findings (principal); R73.01 Impaired fasting glucose; I48.0 Paroxysmal atrial fibrillation; Z12.11 Encounter for screening for malignant neoplasm of colon; Z12.5 Encounter for screening for malignant neoplasm of prostate
CPT/HCPCS: 99396

== ENCOUNTER 2024-03-14 09:45 | Outpatient (AMB) | payer OTHER, SELFPAY ==
--- NOTE | 2024-03-14 09:47 | MHC.OFFVIS ---
Intake Visit Reasons: 6m follow up Intake Note: Patient is Present for Telephone Follow Up Urology Med: Alfuzosin, Tadalafil, Pentoxifylline Antibiotic Allergy: None Blood Thinner: Eliquis Last Office PVR: 0ML Allergies No Known Allergies Allergy (Verified 03/14/24 09:47) Medication List - Last Reconciled 03/14/24 by Raoul Dixon MD alfuzosin ER 10 mg PO DAILY 90 days apixaban (Eliquis) 5 mg PO BID flecainide 75 mg PO BID omeprazole 40 mg PO DAILY 90 days pentoxifylline ER 400 mg PO BID 90 days tadalafil 10 mg PO DAILY 90 days vitamin E (dl, acetate) 450 mg PO DAILY 90 days HPI Comments Details: Venkatesh is a pleasant male. He is a patient of Dr. Aquino. He seen for the following urologic conditions - lower urinary tract symptoms - Peyronie's disease Telemedicine Evaluation 15 min Consultation [email or web address] René Video attempted Has moved to [place] Peyronie's follow-up Has been on conservative therapy Good response to daily tadalafil Also using alfuzosin for combination prostate Would like to continue Prescription provided Peyronie's disease Progressive Normal testosterone 414 Mild deviation with thickening Lower urinary tract symptoms AUA symptom score 20. PSA?12/05/2022?1.54. He was started on alfuzosin 10 mg. 03/05/23-- The patent is taking alfuzosin 10 mg with benefits. States having nocturia episodes 2 times at night, improved from 5 times. Evaluation today-- Blood: negative, leukocytes: negative. Bladder scan PVR: 62 mL. Renal US results reviewed?02/19/23?bilateral renal cyst. Complex in the lower pole of the right kidney 4.4 x 5.5 cm. Bilateral renal calculi noted. Estimated prostate volume noted was 66.3 mL. 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 Cognitive needs: No Hearing needs: No Vision needs: Yes Review of Systems Const All systems reviewed & are unremarkable except as noted in HPI and below Reports no additional complaints Resp Reports no additional complaints GI Reports no additional complaints Reports as per HPI Musc Reports no additional complaints Physical Exam Telemedicine evaluation Appropriate responses Regular breathing rate and rhythm HEENT Head: Yes normal to inspection Ears: hearing grossly normal bilaterally Eyes General: appearance normal, both eyes and all related structures Neck Neck: Yes normal visual inspection Chest Chest palpation & inspection: normal inspection of the chest Resp Effort & Inspection: normal respiratory effort and able to speak in complete sentences Telehealth Telehealth Telehealth Platform: [email or web address] Location of provider rendering services: practice address Location of patient: address on file Patient Identification confirmed using: Name, : Yes Telehealth method: video Patient verbally consented to treatment: Yes Patient verbally consented to billing insurance company: Yes Patient informed of any privacy concerns related to visit: Yes Minutes spent on Phone/Video with Pt.: 15 Assessment & Plan Assessment & Plan (1) BPH loc w urin obs/LUTS: Code(s): N40.1 - Benign prostatic hyperplasia with lower urinary tract symptoms Category: Medical (2) Peyronie's disease: Code(s): N48.6 - Induration penis plastica Category: Medical Plan 12 month follow-up tele Medications: Refilled tadalafil Take daily 10 mg PO DAILY 90 days 90 tabs 1RF Peyrnies N48.6 - Induration penis plastica Patient Instructions: Imaging studies, laboratory and physical exam results were discussed and reviewed in detail. No major barriers to patient understanding were identified. An opportunity to ask questions regarding the treatment plan was provided. All questions were answered. The patient expressed understanding and agreement with the above treatment plan. The patient is aware they should contact our office by phone for worsening of their current condition or the appearance of new urologic symptoms. Compliance is encouraged with any medications and followup testing that is ordered. It is a privilege to participate in the urologic care of your patient. If you have any questions or concerns regarding treatment for the above conditions, or other urologic issues, please do not hesitate to contact me. The office telephone contact is [phone]. This note is constructed using voice recognition software. While every effort has been made to ensure accuracy electronic court recorder errors may have been included. Yours sincerely, Dr Raoul Dixon MD, [facility] - Urology Providers of Expert, Compassionate Care for the Genitourinary System Coding Level of Care Code Tele Est Pt Level 4 (09134) Diagnoses BPH loc w urin obs/LUTS N40.1 Peyronie's disease N48.6
== END 2024-03-14 10:56 | disposition home or self-care (01) ==
LOC: HO.HUSH 09:45
PROVIDERS: PCP Family Medicine; Visit Provider Urology
DX: N40.1 Benign prostatic hyperplasia with lower urinary tract symptoms (principal); N48.6 Induration penis plastica
CPT/HCPCS: 99213

== ENCOUNTER → 2024-03-14 09:45 | Outpatient (BNVA) | payer OTHER, SELFPAY | PROVIDERS: PCP Family Medicine; Visit Provider Urology ==

== ENCOUNTER 2025-03-13 09:12 | Outpatient (AMB) | payer OTHER, SELFPAY ==
--- NOTE | 2025-03-13 09:12 | A.OFFVIS_ITS ---
Intake Visit Reasons: 1y follow up Intake Note: Patient is Present for 1Y Follow Up Urology Med: Alfuzosin, Tadalafil, Pentoxifylline,SILDENAFIL Antibiotic Allergy: None Blood Thinner: Eliquis Helicopter Officer Required: No Allergies No Known Allergies Allergy (Verified 03/13/25 09:13) HPI Comments Details: Venkatesh is a pleasant male. He is a patient of Dr. Aquino. He seen for the following urologic conditions - lower urinary tract symptoms - Peyronie's disease Telemedicine Evaluation 15 min Consultation [facility] René Video attempted Has moved to [place] Continue good response to alfuzosin for bladder management Peyronie's has responded well to combination daily tadalafil and pentoxifylline Would like to continue and learn about penile pump Would like to continue Prescription provided Peyronie's disease Progressive Normal testosterone 414 Mild deviation with thickening Lower urinary tract symptoms AUA symptom score 20. PSA?12/05/2022?1.54 He was started on alfuzosin 10 mg. 03/05/23-- The patent is taking alfuzosin 10 mg with benefits. States having nocturia episodes 2 times at night, improved from 5 times. 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 Cognitive needs: No Hearing needs: No Vision needs: Yes Review of Systems Const All systems reviewed & are unremarkable except as noted in HPI and below Reports no additional complaints Resp Reports no additional complaints GI Reports no additional complaints Reports as per HPI Musc Reports no additional complaints Physical Exam Telemedicine evaluation Appropriate responses Regular breathing rate and rhythm HEENT Head: Yes normal to inspection Ears: hearing grossly normal bilaterally Eyes General: appearance normal, both eyes and all related structures Neck Neck: Yes normal visual inspection Chest Chest palpation & inspection: normal inspection of the chest Resp Effort & Inspection: normal respiratory effort and able to speak in complete sentences Telehealth Telehealth Location of provider rendering services: practice address Location of patient: address on file Patient Identification confirmed using: Name, : Yes Telehealth method: voice only Patient verbally consented to treatment: Yes Patient verbally consented to billing insurance company: Yes Patient informed of any privacy concerns related to visit: Yes Assessment & Plan Assessment & Plan (1) Urinary frequency: Code(s): R35.0 - Frequency of micturition Category: Medical (2) BPH (benign prostatic hyperplasia): Code(s): N40.0 - Benign prostatic hyperplasia without lower urinary tract symptoms Category: Medical (3) Peyronie's disease: Code(s): N48.6 - Induration penis plastica Category: Medical Plan 12 month follow-up Medications: Changed From tadalafil Take daily 10 mg PO DAILY 90 days 90 tabs 1RF Peyrnies N48.6 - Induration penis plastica To tadalafil Take daily [place] patient [id number] [facility] [id number] Member [id number] 10 mg PO DAILY 90 days 90 tabs 2RF Peyrnies N48.6 - Induration penis plastica Refilled alfuzosin ER administer after the same meal each day 10 mg PO DAILY 90 days 90 tabs 3RF Patient Instructions: This note is constructed using voice recognition software. While every effort has been made to ensure accuracy whipped topping mixer errors may have been included. Imaging studies, laboratory and physical exam results were discussed and reviewed in detail. No major barriers to patient understanding were identified. An opportunity to ask questions regarding the treatment plan was provided. All questions were answered. The patient expressed understanding and agreement with the above treatment plan. The patient is aware they should contact our office by phone for worsening of their current condition or the appearance of new urologic symptoms. Compliance is encouraged with any medications and followup testing that is ordered. It is a privilege to participate in the urologic care of your patient. If you have any questions or concerns regarding treatment for the above conditions, or other urologic issues, please do not hesitate to contact me. The office telephone contact is [phone]. Sincerely, Dr Raoul Dixon MD, [facility] - Urology Compassionate Specialist Care for the Genitourinary System Coding Level of Care Code Tele Est Pt Level 4 (17356) Complex EM visit Add On G2211 Diagnoses Urinary frequency R35.0 BPH (benign prostatic hyperplasia) N40.0 Peyronie's disease N48.6
--- OUTSIDE RECORDS SUMMARY | 2025-03-13 09:24 | XMS_ITS | Data Portability ---
Author Organization [facility]ANTON Address [address] [place] [address] Care Team Providers Care Dyehouse Worker Name Role Phone MARIO ALBERTO PAULSON Primary Care Provider MARIO ALBERTO PAULSON Referring Provider Assessment No assessment recorded. Plan of Treatment Reminders Order Date Submit Date Provider Last Modified By Organization Details Last Modified Time Details Appointments None recorded. Lab urinalysis complete, reflex culture 2020 [facility] ([facility]), [address], [place], [address], 12:12:38 PSA, total, serum or plasma 2020 [facility] ([facility]), [address], [place], [address], 10:04:33 BMP, serum or plasma 2020 [facility] ([facility]), [address], [place], [address], 10:04:32 testosteron e, total, serum 2020 [facility] ([facility]), [address], [place], [address], 09:14:25 unlisted lab - CBC w/ auto diff 2020 021 [email or web address] [facility] ([facility]), [address], [place], [address], 10:04:33 CBC w/ auto diff 2020 [email or web address] [address], [place], [address], 09:33:12 testosteron e, total, serum [email or web address] [facility]), [address], [place], [address], 09:33:11 Referral None recorded. Procedures None recorded. Surgeries None recorded. Imaging electrocard iogram 2020 021 [facility] In-Office Order, Internal Use Only DO Not Attach Compendium DO Not Attach Compendium, Do Not Delete/merge, [id number] 11:12:34 electrocard iogram 2020 021 [email or web address] In-Office Order, Internal Use Only DO Not Attach Compendium DO Not Attach Compendium, Do Not Delete/merge, [id number] 13:06:04 Medication Orders flecainide 100 mg tablet 2021 022 [facility] #53555, [address], [place], [id number], 2 16:58:06 metoprolol succinate ER 25 mg tablet,exte nded release 24 hr 2021 022 [facility] #31033, [address], [place], [id number], 22:55:01 aspirin 81 mg tablet,fidelina yed release 2020 021 [facility] 1 [facility] #29206, [address], [place], [id number], 11:05:59 flecainide 100 mg tablet 2020 021 [email or web address] [facility] #99578, [address], [place], [id number], 10:10:22 Multaq 400 mg tablet 2020 021 [facility] 1 [facility] #15064, [address], [place], [id number], 13:53:34 Patient TargetsNo targets recorded. Patient Instructions Encounter Date Encounter Id Patient Instructions Last Modified By Organization Details Last Modified Time 01/21/2021 [id number] eating healthy foods: care instructions [email or web address] Not available 01/21/2021 08:42:03 03/15/2021 [id number] eating healthy foods: care instructions Not available 03/16/2021 13:06:04 07/19/2021 [id number] eating healthy foods: care instructions Not available 07/19/2021 15:11:54 09/16/2021 [id number] eating healthy foods: care instructions [email or web address] Not available 09/16/2021 08:22:47 05/17/2022 [id number] eating healthy foods: care instructions Not available 05/17/2022 16:58:06 Reason for Referral None Reported. Results Created Date Observation Date Name Description Value Unit Range Abnormal Flag Note LastModifiedBy Organization Detail LastModifiedTime 01/08/20 21 01/07/2021 HbA1c (hemo globi n A1c), blood A1C 5.5 % 4.0-6. 0 ADA recom menda tions for adult s with diabe rozina: Hemog lobin A1c <7.0% . More strin gent glyce hipolito goals A1c <6.0% ) may reduc e compl icati ons at the cost of incre ased risk of hypog lycem ia. Incre ased risk for diabe rozina: 5.7-6 .4% Diabe rozina: >6.4% Glyce hipolito Contr ol for adult s with Diabe rozina <7.0% Not Available [facility] ([facility]) [address], [place], [address], 01/07/2021 15:57:40 01/08/20 21 01/07/2021 CBC w/ auto diff WBC 6.61 K/uL 4.40-1 0.80 Not Available [facility] (Lab) [address], [place], [address], 01/07/2021 15:57:40 01/08/20 21 01/07/2021 CBC w/ auto diff RBC 6.13 M/uL 4.40-5 .80 high Not Available [facility] ([facility]) [address], [place], [address], 01/07/2021 15:57:40 01/08/20 21 01/07/2021 CBC w/ auto diff HGB 18.7 g/dL 13.5-1 7.5 high Not Available [facility] ([facility]) [address], [place], [address], 01/07/2021 15:57:40 01/08/20 21 01/07/2021 CBC w/ auto diff HCT 56 % 40-50 high Not Available [facility] ([facility]) [address], [place], [address], 01/07/2021 15:57:40 01/08/20 21 01/07/2021 CBC w/ auto diff MCV 91.0 fL 80.0-9 7.0 Not Available [facility] ([facility]) [address], [place], [address], 01/07/2021 15:57:40 01/08/20 21 01/07/2021 CBC w/ auto diff MCH 30.5 pg 25.8-3 2.9 Not Available [facility] ([facility]) [address], [place], [address], 01/07/2021 15:57:40 01/08/20 21 01/07/2021 CBC w/ auto diff MCHC 33.5 g/dL 31.0-3 5.0 Not Available [facility] ([facility]) [address], [place], [address], 01/07/2021 15:57:40 01/08/20 21 01/07/2021 CBC w/ auto diff RDW 13.5 % 11.1-1 5.1 Not Available [facility] ([facility]) [address], [place], [address], 01/07/2021 15:57:40 01/08/20 21 01/07/2021 CBC w/ auto diff plt 197 K/uL 140-40 0 Not Available [facility] ([facility]) [address], [place], [address], 01/07/2021 15:57:40 01/08/20 21 01/07/2021 CBC w/ auto diff MPV 10.10 fL 7.50-1 4.00 Not Available [facility] ([facility]) [address], [place], [address], 01/07/2021 15:57:40 01/08/20 21 01/07/2021 CBC w/ auto diff neut% 51.3 % 38.8-7 6.4 Not Available [facility] ([facility]) [address], [place], [address], 01/07/2021 15:57:40 01/08/20 21 01/07/2021 CBC w/ auto diff lymph% 35.9 % 17.8-4 6.6 Not Available [facility] ([facility]) [address], [place], [address], 01/07/2021 15:57:40 01/08/20 21 01/07/2021 CBC w/ auto diff mono% 10.3 % 3.0-11 .0 Not Available [facility] ([facility]) [address], [place], [address], 01/07/2021 15:57:40 01/08/20 21 01/07/2021 CBC w/ auto diff eos% 1.50 % 0.00-6 .00 Not Available [facility] ([facility]) [address], [place], [address], 01/07/2021 15:57:40 01/08/20 21 01/07/2021 CBC w/ auto diff baso% 0.5 % 0.0-2. 0 Not Available [facility] ([facility]) [address], [place], [address], 01/07/2021 15:57:40 01/08/20 21 01/07/2021 CBC w/ auto diff Ig% 0.50 % 0.00-3 .00 Not Available [facility] ([facility]) [address], [place], [address], 01/07/2021 15:57:40 01/08/20 21 01/07/2021 CBC w/ auto diff NRBC% 0.00 % 0.00-0 .00 Not Available [facility] ([facility]) [address], [place], [address], 01/07/2021 15:57:40 01/08/20 21 01/07/2021 CBC w/ auto diff neut# 3.40 K/uL 1.90-7 .90 Not Available [facility] ([facility]) [address], [place], [address], 01/07/2021 15:57:40 01/08/20 21 01/07/2021 CBC w/ auto diff lymph# 2.37 K/uL 0.95-4 .90 Not Available [facility] ([facility]) [address], [place], [address], 01/07/2021 15:57:40 01/08/20 21 01/07/2021 CBC w/ auto diff mono# 0.68 K/uL 0.14-1 .20 Not Available [facility] ([facility]) [address], [place], [address], 01/07/2021 15:57:40 01/08/20 21 01/07/2021 CBC w/ auto diff eos# 0.10 K/uL 0.00-0 .70 Not Available [facility] ([facility]) [address], [place], [address], 01/07/2021 15:57:40 01/08/20 21 01/07/2021 CBC w/ auto diff baso# 0.03 K/uL 0.00-0 .20 Not Available [facility] ([facility]) [address], [place], [address], 01/07/2021 15:57:40 01/08/20 21 01/07/2021 CBC w/ auto diff Ig# 0.03 K/uL 0.00-0 .30 Not Available [facility] ([facility]) [address], [place], [address], 01/07/2021 15:57:40 01/08/20 21 01/07/2021 CMP, serum or plasm a glu 98 mg/dL 70-100 Not Available [facility] ([facility]) [address], [place], [address], 01/07/2021 15:57:41 01/08/20 21 01/07/2021 CMP, serum or plasm a BUN 15 mg/dL 7-25 Not Available [facility] ([facility]) [address], [place], [address], 01/07/2021 15:57:41 01/08/20 21 01/07/2021 CMP, serum or plasm a crea 1.11 mg/dL 0.70-1 .33 For patie nts >49 years of age, the refer ence limit for Creat inine is appro ximat robin 13% highe r for peopl e ident ified as Afric an-Am esthela n. Not Available [facility] ([facility]) [address], [place], [address], 01/07/2021 15:57:41 01/08/20 21 01/07/2021 CMP, serum or plasm a GFR 67.56 Refer ence Range for eGFR is >=60 ml/mi n/1.7 3m^2 Not Available [facility] ([facility]) [address], [place], [address], 01/07/2021 15:57:41 01/08/20 21 01/07/2021 CMP, serum or plasm a GFR afric 81.88 Refer ence Range for eGFR is >=60 ml/mi n/1.7 3m^2 Not Available [facility] ([facility]) [address], [place], [address], 01/07/2021 15:57:41 01/08/20 21 01/07/2021 CMP, serum or plasm a BUN/crea 13 ratio 10-20 Not Available [facility] ([facility]) [address], [place], [address], 01/07/2021 15:57:41 01/08/20 21 01/07/2021 CMP, serum or plasm a Na 140 mmol/ L 134-14 4 Not Available [facility] ([facility]) [address], [place], [address], 01/07/2021 15:57:41 01/08/20 21 01/07/2021 CMP, serum or plasm a K 4.5 mmol/ L 3.5-5. 3 Not Available [facility] ([facility]) [address], [place], [address], 01/07/2021 15:57:41 01/08/20 21 01/07/2021 CMP, serum or plasm a cL 106 mmol/ L 98-110 Not Available [facility] ([facility]) [address], [place], [address], 01/07/2021 15:57:41 01/08/20 21 01/07/2021 CMP, serum or plasm a CO2 22 mmol/ L 22-30 Not Available [facility] ([facility]) [address], [place], [address], 01/07/2021 15:57:41 01/08/20 21 01/07/2021 CMP, serum or plasm a Ca 9.9 mg/dL 8.6-10 .3 Not Available [facility] ([facility]) [address], [place], [address], 01/07/2021 15:57:41 01/08/20 21 01/07/2021 CMP, serum or plasm a TP 7.0 g/dL 6.3-8. 2 Not Available [facility] ([facility]) [address], [place], [address], 01/07/2021 15:57:41 01/08/20 21 01/07/2021 CMP, serum or plasm a alb 4.6 g/dL 3.5-5. 0 Not Available [facility] ([facility]) [address], [place], [address], 01/07/2021 15:57:41 01/08/20 21 01/07/2021 CMP, serum or plasm a glob 2.4 g/dL 1.9-3. 7 Not Available [facility] ([facility]) [address], [place], [address], 01/07/2021 15:57:41 01/08/20 21 01/07/2021 CMP, serum or plasm a A/G 1.9 ratio 1.0-2. 5 Not Available [facility] (Lab) [address], [place], [address], 01/07/2021 15:57:41 01/08/20 21 01/07/2021 CMP, serum or plasm a tbil 0.9 mg/dL 0.2-1. 3 Not Available [facility] ([facility]) [address], [place], [address], 01/07/2021 15:57:41 01/08/20 21 01/07/2021 CMP, serum or plasm a ALKP 95 U/L 38-120 Not Available [facility] ([facility]) [address], [place], [address], 01/07/2021 15:57:41 01/08/20 21 01/07/2021 CMP, serum or plasm a AST 33 U/L 17-59 Not Available [facility] ([facility]) [address], [place], [address], 01/07/2021 15:57:41 01/08/20 21 01/07/2021 CMP, serum or plasm a ALT 33 U/L <50 Not Available [facility] ([facility]) [address], [place], [address], 01/07/2021 15:57:41 01/08/20 21 01/07/2021 TSH, serum , refle x free T4 TSH 1.74 mIU/L 0.40-4 .50 Not Available [facility] ([facility]) [address], [place], [address], 01/07/2021 15:57:41 01/08/20 21 01/07/2021 lipid panel , serum chol 219 mg/dL 125-20 0 high Not Available [facility] ([facility]) [address], [place], [address], 01/07/2021 15:57:42 01/08/20 21 01/07/2021 lipid panel , serum HDL 57.0 mg/dL 40.0-6 0.0 Not Available [facility] ([facility]) [address], [place], [address], 01/07/2021 15:57:42 01/08/20 21 01/07/2021 lipid panel , serum trig 164 mg/dL <150 high Not Available [facility] ([facility]) [address], [place], [address], 01/07/2021 15:57:42 01/08/20 21 01/07/2021 lipid panel , serum LDLC 129 mg/dL <130 Kameron able range : <100 mg/dL for patie nts with CHD or diabe rozina. Kameron able range : <70 mg/dL for diabe tic patie nts with known heart disea se. Not Available [facility] ([facility]) [address], [place], [address], 01/07/2021 15:57:42 01/08/2001/07/2021 lipid panel , serum chol/HDL 4 ratio <5 Refer ence value is relat ed to risk level s as recom kristy d by the [facility]. Not Available [facility] ([facility]) [address], [place], [address], 01/07/2021 15:57:42 01/08/2001/07/2021 lipid panel , serum VLDL 33 mg/dL 5-40 Typic ally, high level s of VLDL corre spond s to a high level of trigl yceri clint in the blood . There fore, calcu lated VLDL is based on trigl yceri de value . Not Available [facility] ([facility]) [address], [place], [address], 01/07/2021 15:57:42 01/08/2001/07/2021 PSA, serum or plasm a PSA 1.42 NG/mL 0.00-4 .00 This test is an equim olar test for the detec tion of free and ACT-c omple xed PSA. This test is perfo rmed on the VITRO S using the immun ometr ic metho d. Value s obtai rosa from diffe rent assay metho ds canno t be used inter bowles eably . Not Available [facility] ([facility]) [address], [place], [address], 01/07/2021 15:57:42 01/08/20 21 01/08/2021 testo stero ne, total , serum testosterone , total, males (adult), ia 667 NG/dL 250-82 7 normal Not Available [facility] [address], [place], [address], 01/08/2021 09:40:48 03/28/20 21 03/28/2021 CBC w/ auto diff WBC 6.08 K/uL 4.40-1 0.80 Not Available [facility] ([facility]) [address], [place], [address], 03/28/2021 21:31:43 03/28/20 21 03/28/2021 CBC w/ auto diff RBC 5.19 M/uL 4.40-5 .80 Not Available [facility] ([facility]) [address], [place], [address], 03/28/2021 21:31:43 03/28/20 21 03/28/2021 CBC w/ auto diff HGB 16.1 g/dL 13.5-1 7.5 Not Available [facility] ([facility]) [address], [place], [address], 03/28/2021 21:31:43 03/28/20 21 03/28/2021 CBC w/ auto diff HCT 51 % 40-50 high Not Available [facility] ([facility]) [address], [place], [address], 03/28/2021 21:31:43 03/28/20 21 03/28/2021 CBC w/ auto diff MCV 97.7 fL 80.0-9 7.0 high Not Available [facility] ([facility]) [address], [place], [address], 03/28/2021 21:31:43 03/28/20 21 03/28/2021 CBC w/ auto diff MCH 31.0 pg 25.8-3 2.9 Not Available [facility] ([facility]) [address], [place], [address], 03/28/2021 21:31:43 03/28/20 21 03/28/2021 CBC w/ auto diff MCHC 31.8 g/dL 31.0-3 5.0 Not Available [facility] ([facility]) [address], [place], [address], 03/28/2021 21:31:43 03/28/20 21 03/28/2021 CBC w/ auto diff RDW 13.2 % 11.1-1 5.1 Not Available [facility] ([facility]) [address], [place], [address], 03/28/2021 21:31:43 03/28/20 21 03/28/2021 CBC w/ auto diff plt 175 K/uL 140-40 0 Not Available [facility] ([facility]) [address], [place], [address], 03/28/2021 21:31:43 03/28/20 21 03/28/2021 CBC w/ auto diff MPV 10.00 fL 7.50-1 4.00 Not Available [facility] ([facility]) [address], [place], [address], 03/28/2021 21:31:43 03/28/20 21 03/28/2021 CBC w/ auto diff neut% 56.3 % 38.8-7 6.4 Not Available [facility] ([facility]) [address], [place], [address], 03/28/2021 21:31:43 03/28/20 21 03/28/2021 CBC w/ auto diff lymph% 28.6 % 17.8-4 6.6 Not Available [facility] ([facility]) [address], [place], [address], 03/28/2021 21:31:43 03/28/20 21 03/28/2021 CBC w/ auto diff mono% 11.5 % 3.0-11 .0 high Not Available [facility] ([facility]) [address], [place], [address], 03/28/2021 21:31:43 03/28/20 21 03/28/2021 CBC w/ auto diff eos% 2.60 % 0.00-6 .00 Not Available [facility] ([facility]) [address], [place], [address], 03/28/2021 21:31:43 03/28/20 21 03/28/2021 CBC w/ auto diff baso% 0.7 % 0.0-2. 0 Not Available [facility] ([facility]) [address], [place], [address], 03/28/2021 21:31:43 03/28/20 21 03/28/2021 CBC w/ auto diff Ig% 0.30 % 0.00-3 .00 Not Available [facility] ([facility]) [address], [place], [address], 03/28/2021 21:31:43 03/28/20 21 03/28/2021 CBC w/ auto diff NRBC% 0.00 % 0.00-0 .00 Not Available [facility] ([facility]) [address], [place], [address], 03/28/2021 21:31:43 03/28/20 21 03/28/2021 CBC w/ auto diff neut# 3.42 K/uL 1.90-7 .90 Not Available [facility] ([facility]) [address], [place], [address], 03/28/2021 21:31:43 03/28/20 21 03/28/2021 CBC w/ auto diff lymph# 1.74 K/uL 0.95-4 .90 Not Available [facility] ([facility]) [address], [place], [address], 03/28/2021 21:31:43 03/28/20 21 03/28/2021 CBC w/ auto diff mono# 0.70 K/uL 0.14-1 .20 Not Available [facility] ([facility]) [address], [place], [address], 03/28/2021 21:31:43 03/28/20 21 03/28/2021 CBC w/ auto diff eos# 0.16 K/uL 0.00-0 .70 Not Available [facility] ([facility]) [address], [place], [address], 03/28/2021 21:31:43 03/28/20 21 03/28/2021 CBC w/ auto diff baso# 0.04 K/uL 0.00-0 .20 Not Available [facility] ([facility]) [address], [place], [address], 03/28/2021 21:31:43 03/28/20 21 03/28/2021 CBC w/ auto diff Ig# 0.02 K/uL 0.00-0 .30 Not Available [facility] ([facility]) [address], [place], [address], 03/28/2021 21:31:43 03/28/20 21 03/29/2021 testo stero ne, total , serum testosterone , total, males (adult), ia 391 NG/dL 250-82 7 normal Not Available [facility] [address], [place], [address], 03/29/2021 11:36:50 09/19/20 21 09/20/2021 TESTO STERO NE TOTAL , SERUM testosterone 424 NG/dL 264-91 6 normal Adult male refer ence inter tammy is based on a popul ation of healt hy nonob dang males (BMI <30) betwe en 19 and 39 years old. Jessee english et.al . JCEM 2017, 102;1 161-1 173. PMID: 56701 103. Not Available [facility] [address] [place], [address], 09/20/2021 09:14:25 09/19/20 21 09/19/2021 BASIC METAB OLIC PANEL glu 86 mg/dL 70-100 Not Available [facility] [address] [place] [address], [address], 09/20/2021 10:04:32 09/19/20 21 09/19/2021 BASIC METAB OLIC PANEL BUN 22 mg/dL 7-25 Not Available [facility] [address] [place] [address], [address], 09/20/2021 10:04:32 09/19/20 21 09/19/2021 BASIC METAB OLIC PANEL crea 1.15 mg/dL 0.70-1 .33 For patie nts >49 years of age, the refer ence limit for Creat inine is appro ximat robin 13% highe r for peopl e ident ified as Afric an-Am esthela n. Not Available [facility] [address] [place], [address], 09/20/2021 10:04:32 09/19/20 21 09/19/2021 BASIC METAB OLIC PANEL GFR 64.70 Refer ence Range for eGFR is >=60 ml/mi n/1.7 3m^2 Not Available [facility] [address] [place], [address], 09/20/2021 10:04:32 09/19/20 21 09/19/2021 BASIC METAB OLIC PANEL GFR afric 78.42 Refer ence Range for eGFR is >=60 ml/mi n/1.7 3m^2 Not Available [facility] [address] [place], [address], 09/20/2021 10:04:32 09/19/20 21 09/19/2021 BASIC METAB OLIC PANEL BUN/crea 19 ratio 10-20 Not Available [facility] [address] [place] [address], [address], 09/20/2021 10:04:32 09/19/20 21 09/19/2021 BASIC METAB OLIC PANEL Na 139 mmol/ L 134-14 4 Not Available [facility] [address] [place] [address], [address], 09/20/2021 10:04:32 09/19/20 21 09/19/2021 BASIC METAB OLIC PANEL K 4.2 mmol/ L 3.5-5. 3 Not Available [facility] [address] [place] [address], [address], 09/20/2021 10:04:32 09/19/20 21 09/19/2021 BASIC METAB OLIC PANEL cL 106 mmol/ L 98-110 Not Available [facility] [address] [place] [address], [address], 09/20/2021 10:04:32 09/19/20 21 09/19/2021 BASIC METAB OLIC PANEL CO2 22 mmol/ L 22-30 Not Available [facility] [address] [place] [address], [address], 09/20/2021 10:04:32 09/19/20 21 09/19/2021 BASIC METAB OLIC PANEL Ca 9.7 mg/dL 8.6-10 .3 Not Available [facility] [address] [place] [address], [address], 09/20/2021 10:04:32 09/19/20 21 09/19/2021 PROST ATIC SPECI FIC ANTIG EN, TOTAL PSA 1.25 NG/mL 0.00-4 .00 This test is an equim olar test for the detec tion of free and ACT-c omple xed PSA. This test is perfo rmed on the VITRO S using the immun ometr ic metho d. Value s obtai rosa from diffe rent assay metho ds canno t be used inter bowles eably . Not Available [facility], [address], 09/20/2021 10:04:33 09/19/20 21 09/19/2021 COMPL ETE BLOOD COUNT WITH AUTO DIFF WBC 6.19 K/uL 4.40-1 0.80 Not Available [facility], [address], 09/20/2021 10:04:33 09/19/20 21 09/19/2021 COMPL ETE BLOOD COUNT WITH AUTO DIFF RBC 5.49 M/uL 4.40-5 .80 Not Available [address], [address], 09/20/2021 10:04:33 09/19/20 21 09/19/2021 COMPL ETE BLOOD COUNT WITH AUTO DIFF HGB 17.0 g/dL 13.5-1 7.5 Not Available [facility], [address], 09/20/2021 10:04:33 09/19/20 21 09/19/2021 COMPL ETE BLOOD COUNT WITH AUTO DIFF HCT 52 % 40-50 high Not Available [facility] [address], [address], 09/20/2021 10:04:33 09/19/20 21 09/19/2021 COMPL ETE BLOOD COUNT WITH AUTO DIFF MCV 94.9 fL 80.0-9 7.0 Not Available [facility] [address], [address], 09/20/2021 10:04:33 09/19/20 21 09/19/2021 COMPL ETE BLOOD COUNT WITH AUTO DIFF MCH 31.0 pg 25.8-3 2.9 Not Available [facility] [address] [place], [address], 09/20/2021 10:04:33 09/19/20 21 09/19/2021 COMPL ETE BLOOD COUNT WITH AUTO DIFF MCHC 32.6 g/dL 31.0-3 5.0 Not Available [facility], [address], 09/20/2021 10:04:33 09/19/20 21 09/19/2021 COMPL ETE BLOOD COUNT WITH AUTO DIFF RDW 12.8 % 11.1-1 5.1 Not Available [facility] Listen Edition [address], [address], 09/20/2021 10:04:33 09/19/20 21 09/19/2021 COMPL ETE BLOOD COUNT WITH AUTO DIFF plt 144 K/uL 140-40 0 Not Available [address], [address], 09/20/2021 10:04:33 09/19/20 21 09/19/2021 COMPL ETE BLOOD COUNT WITH AUTO DIFF MPV 10.10 fL 7.50-1 4.00 Not Available [facility], [address], 09/20/2021 10:04:33 09/19/20 21 09/19/2021 COMPL ETE BLOOD COUNT WITH AUTO DIFF neut% 55.4 % 38.8-7 6.4 Not Available [facility], [address], 09/20/2021 10:04:33 09/19/20 21 09/19/2021 COMPL ETE BLOOD COUNT WITH AUTO DIFF lymph% 26.0 % 17.8-4 6.6 Not Available [facility], [address], 09/20/2021 10:04:33 09/19/20 21 09/19/2021 COMPL ETE BLOOD COUNT WITH AUTO DIFF mono% 14.1 % 3.0-11 .0 high Not Available [facility] [address], [address], 09/20/2021 10:04:33 09/19/20 21 09/19/2021 COMPL ETE BLOOD COUNT WITH AUTO DIFF eos% 3.70 % 0.00-6 .00 Not Available [facility] [address], [address], 09/20/2021 10:04:33 09/19/20 21 09/19/2021 COMPL ETE BLOOD COUNT WITH AUTO DIFF baso% 0.6 % 0.0-2. 0 Not Available [facility] [address], [address], 09/20/2021 10:04:33 09/19/20 21 09/19/2021 COMPL ETE BLOOD COUNT WITH AUTO DIFF Ig% 0.20 % 0.00-3 .00 Not Available [facility] [address], [address], 09/20/2021 10:04:33 09/19/20 21 09/19/2021 COMPL ETE BLOOD COUNT WITH AUTO DIFF NRBC% 0.00 % 0.00-0 .00 Not Available [facility], [address], 09/20/2021 10:04:33 09/19/20 21 09/19/2021 COMPL ETE BLOOD COUNT WITH AUTO DIFF neut# 3.43 K/uL 1.90-7 .90 Not Available [facility] [address], [address], 09/20/2021 10:04:33 09/19/20 21 09/19/2021 COMPL ETE BLOOD COUNT WITH AUTO DIFF lymph# 1.61 K/uL 0.95-4 .90 Not Available [address], [address], 09/20/2021 10:04:33 09/19/20 21 09/19/2021 COMPL ETE BLOOD COUNT WITH AUTO DIFF mono# 0.87 K/uL 0.14-1 .20 Not Available [facility], [address], 09/20/2021 10:04:33 09/19/20 21 09/19/2021 COMPL ETE BLOOD COUNT WITH AUTO DIFF eos# 0.23 K/uL 0.00-0 .70 Not Available [address], [address], 09/20/2021 10:04:33 09/19/20 21 09/19/2021 COMPL ETE BLOOD COUNT WITH AUTO DIFF baso# 0.04 K/uL 0.00-0 .20 Not Available [address], [address], 09/20/2021 10:04:33 09/19/20 21 09/19/2021 COMPL ETE BLOOD COUNT WITH AUTO DIFF Ig# 0.01 K/uL 0.00-0 .30 Not Available [address], [address], 09/20/2021 10:04:33 09/19/20 21 09/19/2021 URINA LYSIS WITH MICRO SCOPI C REFLX CULTU RE microscopic examination Commen t normal Micro scopi c follo ws if indic ated. See below : Micro scopi c was indic ated and was perfo rmed. Not Available [address], [address], 09/20/2021 12:12:38 09/19/20 21 09/19/2021 URINA LYSIS WITH MICRO SCOPI C REFLX CULTU RE urinalysis reflex Commen t This speci men will not refle x to a Urine Cultu re. Not Available [facility] [employer], [address], 09/20/2021 12:12:38 09/19/20 21 09/20/2021 URINA LYSIS WITH MICRO SCOPI C REFLX CULTU RE specific gravity 1.022 1.005- 1.030 normal Not Available [facility], [address], 09/20/2021 12:12:38 09/19/20 21 09/20/2021 URINA LYSIS WITH MICRO SCOPI C REFLX CULTU RE pH 5.0 5.0-7. 5 normal Not Available [facility], [address], 09/20/2021 12:12:38 09/19/20 21 09/20/2021 URINA LYSIS WITH MICRO SCOPI C REFLX CULTU RE urine-color Yellow yellow normal Not Available [facility] [address], [address], 09/20/2021 12:12:38 09/19/20 21 09/20/2021 URINA LYSIS WITH MICRO SCOPI C REFLX CULTU RE appearance Clear clear normal Not Available [facility], [address], 09/20/2021 12:12:38 09/19/20 21 09/20/2021 URINA LYSIS WITH MICRO SCOPI C REFLX CULTU RE WBC esterase Negati ve negati ve normal Not Available [facility], [address], 09/20/2021 12:12:38 09/19/20 21 09/20/2021 URINA LYSIS WITH MICRO SCOPI C REFLX CULTU RE protein Negati ve negati ve/tra ce normal Not Available [facility], [address], 09/20/2021 12:12:38 09/19/20 21 09/20/2021 URINA LYSIS WITH MICRO SCOPI C REFLX CULTU RE glucose Negati ve negati ve normal Not Available [address], [address], 09/20/2021 12:12:38 09/19/20 21 09/20/2021 URINA LYSIS WITH MICRO SCOPI C REFLX CULTU RE ketones Negati ve negati ve normal Not Available [address], [address], 09/20/2021 12:12:38 09/19/20 21 09/20/2021 URINA LYSIS WITH MICRO SCOPI C REFLX CULTU RE occult blood Negati ve negati ve normal Not Available [address], [address], 09/20/2021 12:12:38 09/19/20 21 09/20/2021 URINA LYSIS WITH MICRO SCOPI C REFLX CULTU RE bilirubin Negati ve negati ve normal Not Available [address], [address], 09/20/2021 12:12:38 09/19/20 21 09/20/2021 URINA LYSIS WITH MICRO SCOPI C REFLX CULTU RE urobilinogen ,semi-qn 0.2 mg/dL 0.2-1. 0 normal Not Available [facility], [address], 09/20/2021 12:12:38 09/19/20 21 09/20/2021 URINA LYSIS WITH MICRO SCOPI C REFLX CULTU RE nitrite, urine Negati ve negati ve normal Not Available [address], [address], 09/20/2021 12:12:38 09/19/20 21 09/20/2021 URINA LYSIS WITH MICRO SCOPI C REFLX CULTU RE WBC None seen /hpf 0 - 5 normal Not Available [address], [address], 09/20/2021 12:12:38 09/19/20 21 09/20/2021 URINA LYSIS WITH MICRO SCOPI C REFLX CULTU RE RBC None seen /hpf 0 - 2 normal Not Available [address], [address], 09/20/2021 12:12:38 09/19/20 21 09/20/2021 URINA LYSIS WITH MICRO SCOPI C REFLX CULTU RE epithelial cells (non renal) None seen /hpf 0 - 10 normal Not Available [address], [address], 09/20/2021 12:12:38 09/19/20 21 09/20/2021 URINA LYSIS WITH MICRO SCOPI C REFLX CULTU RE casts None seen /lpf none seen normal Not Available [address], [address], 09/20/2021 12:12:38 09/19/20 21 09/20/2021 URINA LYSIS WITH MICRO SCOPI C REFLX CULTU RE bacteria None seen none seen/f ew normal Not Available [address], [address], 09/20/2021 12:12:38 02/03/20 21 01/11/2021 CT, coron cory calci um score No observ ation record ed. [facility] ([facility]) [address], [place], [address], 02/02/2021 12:49:16 02/03/20 21 01/11/2021 US, karlo jefferson for abdom inal aorti c aneur ysm No observ ation record ed. [facility] ([facility]) [address], [place], [address], 02/03/2021 17:45:31 03/12/20 21 elect rocar diogr am No observ ation record ed. MADHAV In-Office Order Internal Use Only DO Not Attach Compendium DO Not Attach Compendium, Do Not Delete/merge, [id number] 03/15/2021 14:12:56 03/20/20 21 03/15/2021 elect rocar diogr am No observ ation record ed. In-Office Order Internal Use Only DO Not Attach Compendium DO Not Attach Compendium, Do Not Delete/merge, [id number] 03/20/2021 13:37:23 07/11/20 21 elect rocar diogr am No observ ation record ed. MADHAV In-Office Order Internal Use Only DO Not Attach Compendium DO Not Attach Compendium, Do Not Delete/merge, [id number] 07/19/2021 13:43:53 07/19/20 21 07/19/2021 elect rocar diogr am No observ ation record ed. rorduna In-Office Order Internal Use Only DO Not Attach Compendium DO Not Attach Compendium, Do Not Delete/merge, [id number] 07/19/2021 17:42:29 Result Notes None recorded. Problems Name Problem SNOMED Code Status Onset Date Resolution Date Notes Provider Name and Address Organization Details Recorded Time Non-smoker 4830765 Active 2019 Julita Stewart [facility], [facility] 0 14:03:18 Hypogonadism 73984827 Active 2020 Binta Victoria MD [address] [place] [address],[address], [place], [address] , [facility] 1 08:10:44 Paroxysmal atrial fibrillation 520884426 Active 2020 Binta Victoria MD [address] [place] [address],[address], [place], [address] , [facility] 1 08:11:03 Primary erectile dysfunction 476222360 Active 2020 Binta Victoria MD [facility],[address], [place], [address] , [facility] 1 08:11:27 Hyperlipidemi a 51280555 Active 2020 Binta Victoria MD [address] [place] [address] [facility],[address], [place], [place], [address] [place] [address] 1 08:43:35 Elevated blood-pressur e reading without diagnosis of hypertension 809680753 Active 2020 Binta Victoria MD [address] [place] [address],[address], [place], [address] [place] [address] 1 08:44:48 Body mass index 25-29 - overweight 157136874 Active Not Available [facility] 2 02:05:00 Cobalamin deficiency 278776931 Active Not Available [facility] 2 02:05:01 Gastroesophag eal reflux disease 382814703 Active 2016 Not Available [facility] 2 02:05:01 Neuropathy 920192488 Active Not Available [facility] 2 02:05:01 Dysphagia 19245790 Active Not Available [facility] 2 02:05:01 Hyperglycemia 07233935 Active 2018 Not Available [facility] 2 02:05:02 Problem Notes None recorded. Medical Equipment None Reported. Allergies No known drug allergies Medications Name Sig Start Date Stop Date Status Note LastModified by Organization Details LastModified Time amiodarone 200 mg tablet Take 1 tablet twice a day by oral route. 07/19 completed Not Available Not Available Not Available aspirin 81 mg tablet,del ayed release Take 1 tablet(s ) every day by oral route for 90 days. active Not Available Not Available No t Available tramadol 50 mg tablet Take 1 tablet every 4 hours by oral route as needed. active Not Available Not Available No t Available BD Regular Bevel [place] 18 gauge x 1 USE TO DRAW UP TESTOSTE RUSTAM Q 2 WEEKS OR UTD 11/16 completed Not Available Not Available Not Available amiodarone 400 mg tablet Take 1 tablet 3 times a day by oral route with meals for 5 days. 02/18 completed Please take 400 mg, 3 times day and then 200 mg twice daily Not Available Not Available Not Available tamsulosin 0.4 mg capsule one capsule PO daily 05/17 completed Not Available Not Available Not Available AndroGel 1 % (50 mg/5 gram) transderma l gel packet Apply 1 packet every day by transder mal route for 30 days. 02/09 completed Not Available Not Available Not Available flecainide 100 mg tablet TAKE 1 TABLET TWICE A DAY active Not Available Not Available No t Available aspirin 81 mg chewable tablet LOOP SEWER 1 T PO QD 05/04 completed Not Available Not Available Not Available metoprolol succinate ER 25 mg tablet,ext ended release 24 hr TAKE 1 TABLET DAILY 2021 active Not Available Not Available Not Avai lable testostero ne cypionate 200 mg/mL intramuscu lar oil Inject 0.5 mL every 2 weeks by intramus c. route for 90 days. 09/16 completed Not Available Not Available Not Available BD Luer-Conrad Syringe 3 mL 22 x 1 /2 USE DIRECTED TO INJECT TESTOSTE RUSTAM EVERY 2 WEEKS OR DIRECTED 11/16 completed Not Available Not Available Not Available Cialis 10 mg tablet 1 po q 72 hours prn sexual activity 07/26 completed Not Available Not Available Not Available sildenafil (pulmonary hypertensi on) 20 mg tablet 3-5 tabs po prn sexual activity 05/17 completed Not Available Not Available Not Available Zostavax (PF) 19,400 unit/0.65 mL subcutaneo us suspension ADM 0.65ML SC UTD 09/10 completed Not Available Not Available Not Available Nascobal 500 mcg/spray nasal spray once a week 12/22 completed Not Available Not Available Not Available cyclobenza ramírez 7.5 mg tablet Take 1 tablet twice a day by oral route as needed. 09/10 completed Not Available Not Available Not Available Multaq 400 mg tablet Take 1 tablet twice a day by oral route for 30 days. 07/19 completed Not Available Not Available Not Available testostero ne 30 mg/actuati on (1.5 mL) transderm solution metered pump APPLY 3 PUMPS TOPICALL Y EVERY DAY 08/08 completed Not Available Not Available Not Available Androderm 4 mg/24 hr transderma l 24 hour patch 1 patch qd - replaces pump active Not Available Not Available No t Available Vitamin D3 100 mcg (4,000 unit) capsule qd 12/22 completed Not Available Not Available Not Available Prepopik 10 mg-3.5 gram-12 gram oral powder packet Take by oral route. 08/17 completed Not Available Not Available Not Available Fluvirin 0178-2500 45 mcg (15 mcg x 3)/0.5 mL intramuscu lar suspension ADM 0.5ML IM UTD 09/10 completed Not Available Not Available Not Available sildenafil (antihyper tensive) 20 mg tablet Take 1 tablet 3 times a day by oral route. 05/17 completed Not Available Not Available Not Available Afluria Quad 0391-9932 (PF) 60 mcg (15 mcg x 4)/0.5 mL IM syringe ADM 0.5ML IM UTD 07/26 completed Not Available Not Available Not Available Fluarix Quad (PF) 60 mcg (15 mcg x 4)/0.5 mL IM syringe ADM 0.5ML IM UTD 05/04 completed Not Available Not Available Not Available ID NOW COVID-19 Test Kit TEST DIRECTED TODAY 05/17 completed Not Available Not Available Not Available Flucelvax Quad (PF) 60 mcg (15 mcg x 4)/0.5 mL IM syringe ADM 0.5ML IM UTD 01/07 completed Not Available Not Available Not Available Flowflex COVID-19 Antigen Home Test kit 05/17 completed Not Available Not Available Not Available Vitals Date Recorded Systolic blood pressure Diastolic blood pressure Provider Name and Address Organization Details Last Updated DateTime 01/21/2021 138 mm[Hg] 91 mm[Hg] Binta Victoria MD [address] [facility],[address] [facility], [place], [address], [facility] 01/21/2021 08:40:15 Date Recorded Body height Body mass index (BMI) Body weight Heart rate Body temperature Oxygen saturation Oxygen saturation in Arterial blood by Pulse oximetry Systolic blood pressure Diastolic blood pressure Provider Name and Address Organization Details Last Updated DateTime 1 193.04 cm 28.8 kg/m2 272683. 6 g 47 /min 96 [degF] 95 % 95 % 146 mm[Hg] 84 mm[Hg] Julita Robin [facility] 1 08:08:15 Date Recorded Body height Heart rate Oxygen saturation Oxygen saturation in Arterial blood by Pulse oximetry Systolic blood pressure Diastolic blood pressure Provider Name and Address Organization Details Last Updated DateTime 1 193.04 cm 50 /min 94 % 94 % 135 mm[Hg] 79 mm[Hg] [facility] 14:36:13 Date Recorded Body height Heart rate Systolic blood pressure Diastolic blood pressure Provider Name and Address Organization Details Last Updated DateTime 05/17/2022 193.04 cm 65 /min 122 mm[Hg] 82 mm[Hg] Yumiko Foster [facility] 05/17/2022 14:37:37 Date Recorded Body height Body mass index (BMI) Body weight Heart rate Oxygen saturation Oxygen saturation in Arterial blood by Pulse oximetry Body temperature Systolic blood pressure Diastolic blood pressure Provider Name and Address Organization Details Last Updated DateTime 1 193.04 cm 28.8 kg/m2 340668. 39 g 71 /min 96 % 96 % 97.7 [degF] 139 mm[Hg] 84 mm[Hg] Julita Stewart [facility] 13:57:33 Date Recorded Body height Body mass index (BMI) Body weight Body temperature Heart rate Oxygen saturation Oxygen saturation in Arterial blood by Pulse oximetry Systolic blood pressure Diastolic blood pressure Provider Name and Address Organization Details Last Updated DateTime 1 193.04 cm 29 kg/m2 144119. 08 g 97.1 [degF] 53 /min 95 % 95 % 136 mm[Hg] 89 mm[Hg] Juliat Robin [facility] 08:12:33 Social History Question Answer Notes LastModified by Organizat ion Details LastModified Time Tobacco Smoking Status Never Smoker Desire persaud [facility] 07/16/2017 14:52:04 Do You Have An Advance Directive? No [email or web address] Information not available 01/07/2021 Animal Exposure? No [facility] Informat ion not available 07/19/2021 Are You Blind Or Do You Have Difficulty Seeing? No [email or web address] Information not available 01/07/2021 Is Blood Transfusion Acceptable In An Emergency? Yes [email or web address] Information not available 01/07/2021 What Is Your Level Of Caffeine Consumption? Moderate [email or web address] Information not available 01/07/2021 How Much Tobacco Do You Chew? None Information not available 08/16/2020 Are You Deaf Or Do You Have Serious Difficulty Hearing? No [email or web address] Information not available 01/07/2021 What Type Of Diet Are You Following? REGULAR Information not available 08/17/2020 How Many Days In The Past Year Have You Had A Heavy Drinking Consumption (4+ Female, 5+ Male)? 0 [email or web address] Information no t available 01/07/2021 Which Of Your Hands Is Dominant? Right Information not available 01/07/2021 Does The Patient Have Fever OR Cough OR Shortness Of Breath? No Information not available 08/17/2020 If Pulse Oximetry Was Done: Is The Patient's Sp02 Less Than 93% On Room Air? No [facility] Information not available 08/17/2020 Marital Status [facility] Informatio n not available 07/19/2021 What Was The Date Of Your Most Recent Tobacco Screening? 05/17/2022 Information not available 05/17/2022 Have You Ever Been Counseled For Unhealthy Alcohol Use? Yes Information not available 07/19/2021 What Is Your Relationship Status? Information not available 07/19/2021 How Much Tobacco Do You Smoke? No Information not available 07/19/2021 General Stress Level Low Information not available 07/19/2021 Has Tobacco Cessation Counseling Been Provided? Yes Information not available 07/19/2021 On What Date Was Tobacco Cessation Counseling Provided? 01/21/2021 Information not available 07/19/2021 How Many Years Have You Smoked Tobacco? 0 Information not available 07/19/2021 Sex: Male Functional Status Question Answer Note LastModified by Organizat ion Details LastModified Time Do you use any illicit or recreational drugs? No Information not available 05/17/2022 Do you or have you ever used any other forms of tobacco or nicotine? No [email or web address] Information not available 09/16/2021 What is your level of alcohol consumption? Occasional [email or web address] Information not available 01/07/2021 Do you or have you ever used smokeless tobacco? Never used smokeless tobacco Information not available 08/16/2020 Urinary incontinence assessment performed? Yes Information not available 07/19/2021 Are you able to care for yourself? Yes [email or web address] Information not available 01/07/2021 Do you or have you ever used e-cigarettes or vape? Never used electronic cigarettes Information not available 08/16/2020 What is your exercise level? Occasional [email or web address] Information not available 01/07/2021 Mental Status None recorded. Family History Relationship Description Onset Age of this Age Resolved Age Notes LastModified by Organization Details LastModified Time Father Family history of malignant neoplasm [email or web address] Not available 2020 07:56:36 Father Malignant neoplasm of prostate [email or web address] Not available 2021 14:36:08 Father Malignant lymphoma [email or web address] Not available 2021 14:36:08 Notes:father with aneursym b y the heart Medical History Condition Response AFib (Atrial Fibrillation) Y Immunizations Vaccine Type Date Status Note Provider Nam e and Address Organization Details Recorded Time Influenza, split virus, quadrivalent, preservative 9 completed Not Available [facility] 12/13/2021 02:28:44 Influenza, split virus, quadrivalent, preservative 8 completed Not Available [facility] 12/13/2021 02:28:44 zoster live 7 completed Not Available [facility] 12/13/2021 02:28:44 Influenza, split virus, quadrivalent, preservative 7 completed Not Available [facility] 12/13/2021 02:28:44 SARS-COV-2 (COVID-19) vaccine, UNSPECIFIED 1 completed Shelia AranaCaitlyn page null, [facility] 01/07/2021 08:01:38 Influenza, split virus, quadrivalent, preservative 0 completed Shelia Tatyana page null, [facility] 01/07/2021 08:01:57 SARS-COV-2 (COVID-19) vaccine, UNSPECIFIED 1 completed Julita Robin null, [facility] 01/21/2021 08:09:30 Past Encounters Encounter ID Performer Location Encounter Start Date Encounter Closed Date Diagnosis/Indication Diagnosis SNOMED-CT Code Diagnosis ICD10 Code Diagnosis Note [id number] Mario Alberto Paulson MD [facility] [address] [address] 06/23/2016 11:52:23 06/23/2016 12:53:11 [id number] Mario Alberto Paulson MD [facility] [address] [address] 12/22/2016 10:33:44 12/22/2016 11:07:29 [id number] Mario Alberto Paulson MD [facility] [address] [address] 01/29/2017 16:45:47 01/29/2017 18:16:39 [id number] Mario Alberto Paulson MD [facility] [address] [address] 02/09/2017 11:32:21 02/09/2017 15:17:26 [id number] Yoel Campbell [facility] _[address], [address] [address] 07/16/2017 14:33:43 07/16/2017 15:31:25 History of polyp of colon 410033161 Z86.010 History of colonoscopy 3057322843 09 Z98.512 [id number] Mario Alberto Paulson MD [facility] [address] [address] 09/10/2017 15:02:11 09/10/2017 16:07:31 [id number] Mario Alberto Paulson MD [facility] [address], [address] [place] [address] 07/26/2018 14:27:12 07/26/2018 15:19:17 [id number] Mario Alberto Paulson MD [facility] [address], [address] [place] [address] 08/19/2018 10:00:50 08/19/2018 10:18:23 [id number] Mario Alberto Paulson MD [facility] [address], [address] [place] [address] 12/16/2018 09:26:08 12/16/2018 10:18:29 [id number] Ann Gonzáles MD [facility], [address] [place] [address] 01/10/2019 16:17:41 01/10/2019 17:30:38 [id number] Mario Alberto Paulson MD [facility] [address], [address] [place] [address] 02/18/2019 14:04:01 02/18/2019 14:56:46 [id number] Mario Alberto Paulson MD [facility] [address], [address] [place] [address] 05/04/2020 14:44:13 05/04/2020 15:23:42 [id number] Deric Spence MD [facility] [address] [facility],[address] [place] [address] 08/17/2020 13:38:13 08/17/2020 14:38:14 Family history of Aortic aneurysm 211434289 Z82.49 Needs screening abdominal ultrasound Male hypogonadism 143200 06 E29.1 Testostero ne replacemen t as per primary Primary er ectile dysfunction 148692624 N52.9 Currently being managed by primary Family his tory of coronary arteriosclerosis 879317752 Z82.49 We will obtain a screening CT coronary calcium score Paroxysmal atrial fibrillation 067887263 I48.0 Patient is very young and amiodarone has a very significan t long-term side effect profile We will discontinu e amiodarone and start patient on flecainide 100 mg p.o. twice daily Initially patient wants to try the pill in a pocket approach and only take it when he has an episode It was explained to him that that is absolutely safe to do it in that fashion, however, he is to continue taking Toprol-XL 25 mg on a daily basis His chads vas score is 0 -he is currently taking an aspirin daily [id number] Deric Spence MD [facility] [id number] [facility],[address] [place] [address] 11/16/2020 14:06:18 11/16/2020 14:58:24 Paroxysmal atrial fibrillation 875306958 I48.0 Patient is very young and amiodarone has a very significan t long-term side effect profile Initially patient wants to try the pill in a pocket approach and only take it when he has an episode It was explained to him that that is absolutely safe to do it in that fashion, however, he is to continue taking Toprol-XL 25 mg on a daily basis His chads vas score is 0 -he is currently taking an aspirin daily However, patient went back to amiodarone on his own since his last visit since he had 2 or 3 episodes of A. fib Discussed with him the long-term toxicity and side effects -We will continue amiodarone 200 mg twice daily for 1 month and then 200 mg daily Other options would be to consider A. fib ablation Family his tory of Aortic aneurysm [id number] Z82.49 Needs screening abdominal ultrasound Male hypogonadism 260825 06 E29.1 Testostero ne replacemen t as per primary Primary er ectile dysfunction 300997013 N52.9 Currently being managed by primary Family his tory of coronary arteriosclerosis 733937911 Z82.49 We will obtain a screening CT coronary calcium score Finding of body mass index 051089041 E66.9 [id number] Binta Victoria MD [facility] [address] [place] [address] 01/07/2021 07:52:59 01/07/2021 09:10:04 Finding of body mass index 655471289 E66.9 Adult heal th examination 534544311 Z00.00 Personal and family history reviewed. Reviewed health ruthann meng Blood work ordered. Advise healthy diet , Patient advised to exercise at least 30 min x 3 days a week with goal of 5 days a week. Hypogonadism 55496723 E2 9.1 stable, on replacemen t for at least 5 yrs per pt. due for testostero ne checkreque st records from prior PCP [id number] Binta Victoria MD [facility] [address] [place] [address] 01/21/2021 08:03:22 01/21/2021 08:42:21 Finding of body mass index 800191461 E66.9 Hypogonadism 78691843 E2 9.1 on replacemen t for at least 5 yrs per pt. level is normal today, however patient with evidence of erythrocyt osis. Patient would like to do trial off of testostero ne and see how he does, repeat CBC and testostero ne level in 2 months. Will notify patient of results, if decide to resume treatment, patient would like to try topical testostero ne as he prefers this over the injections .Of note, I did review prior records from PCP, noting levels including PSA done 07/2020 Patient will follow-up with me in the office in 6 months Erythrocytosis 165228199 D75.1 Testostero ne use, recheck CBC in 2 months. Of note patient plans to give blood in the near future Paroxysmal atrial fibrillation 857201135 I48.0 Follows with cardiology , noted medication Primary er ectile dysfunction 838164219 N52.9 Stable on sildenafil Hyperlipidemia 32961066 E78.5 Recommend Mediterran anahi-style diet and regular exercise. ASCVD risk 9.7% based on borderline elevated blood pressure today. Could consider statin. At this time, patient will work on lifestyle modificati on and diet, we will recheck blood pressure and lipids in 6 months Elevated blood-pressure reading without diagnosis of hypertension 985795812 R03.0 Borderline today, goal below 140/90. Lifestyle modificati on will monitor. Did note medication that patient is on for A. fib. [id number] MD Sidney Ramirez o [facility] [address] [facility] [address] [place] [address] 03/15/2021 14:12:54 03/15/2021 15:17:13 Paroxysmal atrial fibrillation 023009114 I48.0 Patient is very young and amiodarone has a very significan t long-term side effect profile Initially patient wants to try the pill in a pocket approach and only take it when he has an episode It was explained to him that that is absolutely safe to do it in that fashion, however, he is to continue taking Toprol-XL 25 mg on a daily basis His chads vas score is 0 -he is currently taking an aspirin daily However, patient went back to amiodarone on his own since his last visit since he had 2 or 3 episodes of A. fib Discussed with him the long-term toxicity and side effects- We will start Multaq 400 mg twice daily for the same EKG on 03/15/2021 reveals sinus bradycardi a at 48 bpm, normal axis, QTC of 434 ms Family his tory of Aortic aneurysm [id number] Z82.49 Screening abdominal ultrasound was negative Male hypogonadism 603483 06 E29.1 Testostero ne replacemen t as per primary Primary er ectile dysfunction 232115044 N52.9 Currently being managed by primary Family his tory of coronary arteriosclerosis 380810306 Z82.49 We will obtain a screening CT coronary calcium score Agatston score is 0 Patient was explained regarding low risk of coronary events over the next 3 to 5 years Finding of body mass index 988141083 E66.9 [id number] MD Sidney Ramirez [facility] ts [address] [facility] [address] [place] [address] 07/19/2021 13:43:49 07/19/2021 14:39:49 Paroxysmal atrial fibrillation 569217417 I48.0 Patient is very young and amiodarone has a very significan t long-term side effect profile Initially patient wants to try the pill in a pocket approach and only take it when he has an episode It was explained to him that that is absolutely safe to do it in that fashion, however, he is to continue taking Toprol-XL 25 mg on a daily basis His chads vas score is 0 -he is currently taking an aspirin daily However, patient went back to amiodarone on his own since his last visit since he had 2 or 3 episodes of A. fib Discussed with him the long-term toxicity and side effects- We will start Multaq 400 mg twice daily for the same Clinic follow-up on 07/19/2021 Multaq was too expensive Patient was switched back to flecainide No further episodes of A. fib on flecainide Family his tory of Aortic aneurysm 448668877 Z82.49 Screening abdominal ultrasound was negative Male hypogonadism 351183 06 E29.1 Testostero ne replacemen t as per primary Primary er ectile dysfunction 052812033 N52.9 Currently being managed by primary Family his tory of coronary arteriosclerosis 692131715 Z82.49 We will obtain a screening CT coronary calcium score Agatston score is 0 Patient was explained regarding low risk of coronary events over the next 3 to 5 years Finding of body mass index 175026031 E66.9 [id number] Binta Victoria MD [facility] [address] [place] [address] 09/16/2021 08:08:04 09/16/2021 08:40:37 Body mass index 25-29 - overweight 674541923 Z68.29 Paroxysmal atrial fibrillation 028475435 I48.0 Follows with cardiology , noted medication . refilled ASA Primary er ectile dysfunction 456064687 N52.9 Stable on sildenafil Increased frequency of urination 903713793 R35.0 prostate exam unremarkab le, likely BPH however we will check labsif all normal due trial of flomax 25 min spent face to face with patient 5 min spent reviewing patient chart and records, labs, and placing orders. Hypogonadism 80344122 E2 9.1 check testostero ne and CBCif low can resume replacemen t, pt used to use topical [id number] Mario Alberto Paulson MD [facility] [place] [address] [facility], [address] [place] [address] 06/23/2016 00:00:00 06/23/2016 12:31:41 [id number] Mario Alberto Paulson MD [facility] - [place] [address], [address] [place] [address] 12/22/2016 00:00:00 12/22/2016 11:07:09 [id number] MD nabil Hernandezx_medf irst - [place] [address] [facility], [address] [place] [address] 01/29/2017 00:00:00 01/29/2017 19:07:59 [id number] MD casey Hernandez_medf [facility] - [place] [address] [facility], [address] [place] [address] 02/09/2017 00:00:00 02/09/2017 12:16:47 [id number] MD casey [facility]medf [facility] [address] [facility], [address] [address] 09/10/2017 00:00:00 09/10/2017 16:05:35 [id number] Mario Alberto Paulson MD satx[facility]medalbert irst - [address] [facility], [address] [address] 07/26/2018 00:00:00 07/26/2018 15:19:17 [id number] MD casey Hernandez_medalbert irst - [address] [facility], [facility] [address] [place] [address] 12/16/2018 00:00:00 12/16/2018 10:55:01 [id number] _[id number] ATION_1 SATX_HAVI T_RESOLUT E [address] [place] [address] 01/10/2019 00:00:00 01/10/2019 17:59:02 [id number] MD nabil Hernandezx[facility]medf [facility] - [place] [address], [address] [place] [address] 02/18/2019 00:00:00 02/18/2019 14:56:14 [id number] MD nabil Hernandezx_medf [facility] - [place] [address] [facility], [address] [place] [address] 05/04/2020 00:00:00 05/04/2020 15:12:35 [id number] MD casey [facility] [place] [address] [facility], [facility] [address] [place] [address] 08/19/2018 00:00:00 08/19/2018 17:40:09 [id number] MD CASEY Ramirez_[place] o Cardio [place] [address] [place] [address] 05/17/2022 14:35:55 05/17/2022 14:50:11 Paroxysmal atrial fibrillation 091941883 I48.0 Patient is very young and amiodarone has a very significan t long-term side effect profile Initially patient wants to try the pill in a pocket approach and only take it when he has an episode It was explained to him that that is absolutely safe to do it in that fashion, however, he is to continue taking Toprol-XL 25 mg on a daily basis His chads vas score is 0 -he is currently taking an aspirin daily However, patient went back to amiodarone on his own since his last visit since he had 2 or 3 episodes of A. fib Discussed with him the long-term toxicity and side effects- We will start Multaq 400 mg twice daily for the same Clinic follow-up on 07/19/2021 Multaq was too expensive Patient was switched back to flecainide No further episodes of A. fib on flecainide Clinic follow up 05/17/22Pati ent reports one episode of AFib but max rate was 98bpm according to his watch. He took an Amiodarone on top of his Flecainide and converted in 20 minutes. Patient denies any chest pain or SOB. Advised patient that with the medication s he is on we need an EKG at his next visit to monitor his QT intervals. Family his tory of Aortic aneurysm [id number] Z82.49 Screening abdominal ultrasound was negative Male hypogonadism 437143 06 E29.1 Testostero ne replacemen t as per primary Primary er ectile dysfunction 987952867 N52.9 Currently being managed by primary Family his tory of coronary arteriosclerosis 090826861 Z82.49 We will obtain a screening CT coronary calcium score Agatston score is 0 Patient was explained regarding low risk of coronary events over the next 3 to 5 years Finding of body mass index 392588913 E66.9 BMI 29 Counseled patient on the importance of a healthy diet with portion control coupled with an active and healthy lifestyle. Health Concerns Section Related Observation LastModified by Organization Detai ls LastModified Time None Recorded Concern Status LastModified by Organization Details LastModified Time None Recorded Advance Directives Directive N: Payers Encounter Date Sequence Insurance Name Policy Number Policy Moreno Covered Member ID Moreno Member ID Guarantor Name 01/21/2021 1 [employer] (POS) [id number] Venkatesh Marquez [id number] Venkatesh Marquez 03/15/2021 1 [employer] (POS) [id number] [facility] [id number] [facility] 07/19/2021 1 [employer] (POS) [id number] Venkatesh Marquez [id number] Venkatesh Marquez 09/16/2021 1 [employer] (POS) [id number] [facility] [id number] Venkatesh Marquez 05/17/2022 1 [employer] (POS) [id number] Venkatesh Marquez [id number] Venkatesh Marquez Notes Date Note Type Note Provider Name and Address Organization Details Recorded Time 01/21/2021 text/html Patient is here for follow-up on lab review, all labs reviewed with the patient, noted erythrocytosis, likely to testosterone use. Testosterone level is normal. Need to reduce testosterone Reviewed labs from PCP , labs 07/2020 Patient states he would like to do trial off of testosterone Of note while on testosterone he does have an improved quality of life, more energy ASCVD risk 9.7% based on repeat blood pressure Binta Victoria MD [address] [place] [address],[address], [place], [address], [facility] 01/21/2021 08:46:32 03/15/2021 text/html Mr. Venkatesh tyson is a very pleasant 60-year-old gentleman who is a self-referral for evaluation for paroxysmal atrial fibrillation. He was initially diagnosed with atrial fibrillation by Dr. Gonzáles 1 year ago. He was started on amiodarone which he reports he has been taken sporadically. He does report intermittent episodes where he does feel palpitations with heart rate in the 150-160 range He reports she has cut back on his alcohol intake He has not been able to get a sleep study done due to his travel schedule with his work He is not very active but denies any chest pain, shortness of breath, syncopal events, dizziness, lower extremity swelling, orthopnea, PND His father had a AAA Due to his young age and significant long-term toxicity from amiodarone we had switched him to flecainide. However, he reports he was still having episodes of A. fib on flecainide and on his own went back to amiodarone He does not report any A. fib episodes over the last 1 month Clinic follow-up on 03/15/2021 He reports he is remained in sinus rhythm on amiodarone Long-term side effects of amiodarone in a young person like him were discussed We also discussed alternative medications other than flecainide Deric Spence MD [address] [place] [address],[place] [address], [place], [address] 05/15/2021 12:51:48 07/19/2021 text/html Mr. Venkatesh tyson is a very pleasant 60-year-old gentleman who is a self-referral for evaluation for paroxysmal atrial fibrillation. He was initially diagnosed with atrial fibrillation by Dr. Gonzáles 1 year ago. He was started on amiodarone which he reports he has been taken sporadically. He does report intermittent episodes where he does feel palpitations with heart rate in the 150-160 range He reports she has cut back on his alcohol intake He has not been able to get a sleep study done due to his travel schedule with his work He is not very active but denies any chest pain, shortness of breath, syncopal events, dizziness, lower extremity swelling, orthopnea, PND His father had a AAA Due to his young age and significant long-term toxicity from amiodarone we had switched him to flecainide. However, he reports he was still having episodes of A. fib on flecainide and on his own went back to amiodarone He does not report any A. fib episodes over the last 1 month Clinic follow-up on 03/15/2021 He reports he is remained in sinus rhythm on amiodarone Long-term side effects of amiodarone in a young person like him were discussed We also discussed alternative medications other than flecainide Follow-up on 07/19/2021 Patient has been on flecainide since his last clinic visit He reports no further episodes of A. fib He reports he has been active although he does feel that his A. fib episodes are brought on by exertion outside in the heat and humidity Deric Spence MD [address], [place], [address], [facility] 07/20/2021 10:13:10 09/16/2021 text/html Pt here for 6 mo nth follow upnoted PMH and medications used to be on testosterone replacement in the past. due for T and cbc reports more frequent urination , particularly at night over the last few weeksno hesistancy, sometimes feels like bladder doesnt empty at timesfather has a h/o prostate CA Binta Victoria MD [address], [place], [address], [facility] 09/16/2021 08:44:22 05/17/2022 text/html Mr. Venkatesh tyson is a very pleasant 61-year-old gentleman who is a self-referral for evaluation for paroxysmal atrial fibrillation. He was initially diagnosed with atrial fibrillation by Dr. Gonzáles 1 year ago. He was started on amiodarone which he reports he has been taken sporadically. He does report intermittent episodes where he does feel palpitations with heart rate in the 150-160 range He reports she has cut back on his alcohol intake He has not been able to get a sleep study done due to his travel schedule with his work He is not very active but denies any chest pain, shortness of breath, syncopal events, dizziness, lower extremity swelling, orthopnea, PND His father had a AAA Due to his young age and significant long-term toxicity from amiodarone we had switched him to flecainide. However, he reports he was still having episodes of A. fib on flecainide and on his own went back to amiodarone He does not report any A. fib episodes over the last 1 month Clinic follow-up on 03/15/2021 He reports he is remained in sinus rhythm on amiodarone Long-term side effects of amiodarone in a young person like him were discussed We also discussed alternative medications other than flecainide Follow-up on 07/19/2021 Patient has been on flecainide since his last clinic visit He reports no further episodes of A. fib He reports he has been active although he does feel that his A. fib episodes are brought on by exertion outside in the heat and humidityClinic follow up 05/17/22Patient reports one episode of AFib but max rate was 98bpm according to his watch. He took an Amiodarone on top of his Flecainide and converted in 20 minutes. Patient denies any chest pain or SOB. Advised patient that with the medications he is on we need an EKG at his next visit to monitor his QT intervals. Follow up in 6 months in clinicContinue the following:Metoprolol Succinate ER 25mg QDASA 81mg QDFlecainide 100mg BID Patient was evaluated today via Telehealth by agreement and consent of the patient in light of current COVID-19 pandemic. I used the following Telehealth technology modality: phone call. During the visit I was located in the office and patient was located at home.Total time 21 mins Deric Spence MD [address] [place] [address],[place] [address], [place], [address], [facility] 05/27/2022 22:56:17
== END 2025-03-13 10:13 | disposition home or self-care (01) ==
LOC: HO.HUSH 09:12
PROVIDERS: PCP Family Medicine; Visit Provider Urology
DX: R35.0 Frequency of micturition (principal); N40.0 Benign prostatic hyperplasia without lower urinary tract symptoms; N48.6 Induration penis plastica
CPT/HCPCS: 99214

== ENCOUNTER → 2025-03-13 09:12 | Outpatient (BNVA) | payer OTHER, SELFPAY | PROVIDERS: PCP Family Medicine; Visit Provider Urology ==